=== PATIENT | female | born 1960 | race Caucasian/White ===

== ENCOUNTER → 2023-07-08 13:09 | Outpatient (BNVA) | payer MEDICARE, MEDICAID, SELFPAY | PROVIDERS: Family Provider Family Medicine; PCP Family Medicine; Visit Provider Family Medicine | DX: E11.9 Type 2 diabetes mellitus without complications (principal); I10 Essential (primary) hypertension; E78.5 Hyperlipidemia, unspecified; E05.90 Thyrotoxicosis, unspecified without thyrotoxic crisis or storm | CPT/HCPCS: 80053; 80061; 82607; 83036; 84439; 84443; 84481; 85025 ==

== ENCOUNTER → 2023-10-27 12:06 | Outpatient (BNVA) | payer MEDICARE, MEDICAID, SELFPAY | PROVIDERS: Family Provider Family Medicine; PCP Family Medicine; Visit Provider Family Medicine | DX: R39.9 Unspecified symptoms and signs involving the genitourinary system (principal); N39.0 Urinary tract infection, site not specified | CPT/HCPCS: 81000 ==

== ENCOUNTER → 2023-12-23 08:03 | Outpatient (BNVA) | payer MEDICARE, MEDICAID, SELFPAY | PROVIDERS: Family Provider Family Medicine; PCP Family Medicine; Referring Provider Family Medicine; Visit Provider Internal Medicine | DX: E11.9 Type 2 diabetes mellitus without complications (principal); E78.49 Other hyperlipidemia; I25.10 Atherosclerotic heart disease of native coronary artery without angina pectoris; K31.84 Gastroparesis; E03.9 Hypothyroidism, unspecified; Z79.84 Long term (current) use of oral hypoglycemic drugs | CPT/HCPCS: 36415; 80053; 80061; 82044; 83036; 99204 ==

== ENCOUNTER 2024-01-13 11:38 | Outpatient (CLI) | payer MEDICARE, MEDICAID, SELFPAY ==
[2024-01-13 12:26] LABS: Alanine Aminotransferase 25 U/L (0-33); Albumin Level 4.3 g/dL (3.5-5.2); Alkaline Phosphatase 57 U/L (35-105); Blood Urea Nitrogen 8 mg/dL (8-23); Calcium 9.3 mg/dL (8.5-10.5); Carbon Dioxide 24 mmol/L (22-29); Chloride 103 mmol/L (98-107); Chol HDL Ratio 1.79 mg/dL (0.0-4.40); Cholesterol 104 mg/dL (0-200); Globulin 2.5 g/dL (1.3-4.6); Glomerular Filtration Rate 84.5 mL/min (90-130); Glucose 188 mg/dL (65-115); HDL Cholesterol 58 mg/dL (60-100); LDL Cholesterol Calculated 13 mg/dL (50-129); LDL HDL Ratio 0.22 RATIO (0.00-3.22); Osmolality Calculated 291 mOsm/kg (285-295); Sodium 139 mmol/L (136-145); Total Bilirubin 0.4 mg/dL (0.15-1.2); Total Protein 6.8 g/dL (6.6-8.7); Triglycerides 163 mg/dL (0-150)
[2024-01-13 12:28] LABS: Anion Gap 16.9 (5-19); Aspartate Amino Transferase 21 U/L (0-32); Potassium 4.9 mmol/L (3.5-5.1)
== END 2024-01-13 11:39 | disposition home or self-care (01) ==
LOC: LAB 11:41
PROVIDERS: Family Provider Family Medicine; PCP Family Medicine; Visit Provider Internal Medicine Interventional Cardiology
DX: I25.10 Atherosclerotic heart disease of native coronary artery without angina pectoris (principal); I10 Essential (primary) hypertension
CPT/HCPCS: 36415; 80053; 80061

== ENCOUNTER 2024-03-18 13:25 | Outpatient (CLI) | payer MEDICARE, MEDICAID, SELFPAY ==
--- NOTE | 2024-03-18 13:30 | MM_ITS ---
WS: [id number] BILATERAL 3D TOMOSYNTHESIS DIGITAL SCREENING MAMMOGRAPHY WITH CAD CLINICAL INFORMATION: breast cancer screening HISTORY: Screening mammogram. No current complaints. COMPARISON: 08/22/2022 TECHNIQUE: Bilateral CC and MLO views. FINDINGS: Scattered fibroglandular densities bilaterally. No suspicious focal mass, asymmetry, calcifications, or architectural distortion. No evidence of malignancy. Incidental punctate and lucent centered calci fications. MM/[place] [id number] IMPRESSION: BI-RADS: 2-Benign FOLLOW UP: 1 Year Follow-up Recommend return to annual screening mammography.
== END 2024-03-18 13:26 | disposition home or self-care (01) ==
LOC: RAD 13:26
PROVIDERS: Family Provider Family Medicine; PCP Family Medicine; Visit Provider Family Medicine
DX: Z12.31 Encounter for screening mammogram for malignant neoplasm of breast (principal)
CPT/HCPCS: 77063; 77067

== ENCOUNTER 2024-03-22 10:46 | Outpatient (CLI) | payer MEDICARE, MEDICAID, SELFPAY ==
--- NOTE | 2024-03-22 10:50 | XRR_ITS ---
PROCEDURE INFORMATION: Exam: XR Right Hand Exam date and time: 03/22/2024 11:15 AM Age: 63 years old Clinical indication: Pain; Hand; Right; Additional info: Hand pain TECHNIQUE: Imaging protocol: Radiologic exam of the right hand. Views: 3 or more views. COMPARISON: No relevant prior studies available. FINDINGS: Bones/joints: No fracture or dislocation is noted. There is minimal joint space narrowing involving the 1st carpometacarpal joint and DIP joints. No erosions are noted. Bony mineralization is normal. Soft tissues: Normal. XR/XR hand RT min 3V* [id number] IMPRESSION: Minimal osteoarthritis.
[2024-03-22 11:49] LABS: Alanine Aminotransferase 50 U/L (0-33); Albumin Level 4.3 g/dL (3.5-5.2); Alkaline Phosphatase 58 U/L (35-105); Anion Gap 16.5 (5-19); Aspartate Amino Transferase 30 U/L (0-32); Blood Urea Nitrogen 12 mg/dL (8-23); Calcium 9.6 mg/dL (8.5-10.5); Carbon Dioxide 22 mmol/L (22-29); Chloride 100 mmol/L (98-107); Chol HDL Ratio 3.14 mg/dL (0.0-4.40); Cholesterol 135 mg/dL (0-200); Globulin 2.4 g/dL (1.3-4.6); Glomerular Filtration Rate 72.4 mL/min (90-130); Glucose 235 mg/dL (65-115); HDL Cholesterol 43 mg/dL (60-100); LDL Cholesterol Calculated 51 mg/dL (50-129); LDL HDL Ratio 1.19 RATIO (0.00-3.22); Osmolality Calculated 285 mOsm/kg (285-295); Potassium 4.5 mmol/L (3.5-5.1); Sodium 134 mmol/L (136-145); Total Bilirubin 0.3 mg/dL (0.15-1.2); Total Protein 6.7 g/dL (6.6-8.7); Triglycerides 206 mg/dL (0-150)
[2024-03-22 11:54] LABS: Creatinine Urine, Random 79 mg/dL (28-217); Microalbum Creatinine Ratio Ur 38 mg/dL (0-20); Microalbumin Random Urine 3 ug/dL (0-20)
[2024-03-22 11:57] LABS: Estmated Average Glucose 214; Hemoglobin A1C 9.1 % (4.0-6.0)
== END 2024-03-22 10:47 | disposition home or self-care (01) ==
LOC: LAB 10:48
PROVIDERS: Family Provider Family Medicine; PCP Family Medicine; Visit Provider Internal Medicine
DX: M79.644 Pain in right finger(s) (principal); E11.9 Type 2 diabetes mellitus without complications; E78.49 Other hyperlipidemia; I25.10 Atherosclerotic heart disease of native coronary artery without angina pectoris
CPT/HCPCS: 36415; 73130; 80053; 80061; 82044; 83036

== ENCOUNTER → 2024-03-25 08:06 | Outpatient (BNVA) | payer MEDICARE, MEDICAID, SELFPAY | PROVIDERS: Family Provider Family Medicine; PCP Family Medicine; Visit Provider Internal Medicine | DX: E11.9 Type 2 diabetes mellitus without complications (principal); E78.49 Other hyperlipidemia; Z79.84 Long term (current) use of oral hypoglycemic drugs; Z79.4 Long term (current) use of insulin | CPT/HCPCS: 99214 ==

== ENCOUNTER → 2024-04-28 13:38 | Outpatient (BNVA) | payer MEDICARE, MEDICAID, SELFPAY | PROVIDERS: Family Provider Family Medicine; PCP Family Medicine; Visit Provider Student in an Organized Health Care Education/Training Program | DX: M79.644 Pain in right finger(s) (principal); M65.311 Trigger thumb, right thumb | CPT/HCPCS: 99204 ==

== ENCOUNTER 2024-05-04 13:48 | Outpatient (CLI) | payer MEDICARE, MEDICAID, SELFPAY ==
--- NOTE | 2024-05-04 13:55 | XR_ITS ---
WS: [id number] XR lumbar spine 2-3V* [id number] REASON FOR EXAM: acute on chronic low back pain, rt si joint pain FINDINGS: Mild levoscoliosis. Mild exaggeration of the normal lordosis. No focal vertebral body abnormality. Mild narrowing of the L1-L2, L2-L3, and the L3-L4 disc space. Associated mild vertebral body osteophy tosis. No significant listhesis. XR/XR lumbar spine 2-3V* [id number] IMPRESSION: Mild multilevel degenerative spondylosis which has developed since previous exa mination of 01/28/2017.
== END 2024-05-04 13:49 | disposition home or self-care (01) ==
LOC: RAD 13:49
PROVIDERS: Family Provider Family Medicine; PCP Family Medicine; Visit Provider Family Medicine
DX: M53.3 Sacrococcygeal disorders, not elsewhere classified (principal); G89.29 Other chronic pain; M41.86 Other forms of scoliosis, lumbar region; M48.061 Spinal stenosis, lumbar region without neurogenic claudication
CPT/HCPCS: 72100

== ENCOUNTER 2024-05-17 10:59 | Outpatient (RCR) | payer MEDICARE, MEDICAID, SELFPAY | END 2024-05-27 23:59 | disposition home or self-care (01) | LOC: SPT 10:59 | PROVIDERS: Family Provider Family Medicine; PCP Family Medicine; Visit Provider Family Medicine | DX: M54.50 Low back pain, unspecified (principal) | CPT/HCPCS: 97161 ==

== ENCOUNTER 2024-06-16 13:42 | Outpatient (CLI) | payer MEDICARE, MEDICAID, SELFPAY ==
[2024-06-16 14:21] LABS: Creatinine Urine, Random 105 mg/dL (28-217); Microalbum Creatinine Ratio Ur 38 mg/dL (0-20); Microalbumin Random Urine 4 ug/dL (0-20)
[2024-06-16 14:23] LABS: Alanine Aminotransferase 43 U/L (0-33); Albumin Level 4.3 g/dL (3.5-5.2); Alkaline Phosphatase 66 U/L (35-105); Anion Gap 16.3 (5-19); Aspartate Amino Transferase 22 U/L (0-32); Blood Urea Nitrogen 9 mg/dL (8-23); Calcium 9.8 mg/dL (8.5-10.5); Carbon Dioxide 27 mmol/L (22-29); Chloride 101 mmol/L (98-107); Chol HDL Ratio 2.43 mg/dL (0.0-4.40); Cholesterol 168 mg/dL (0-200); Globulin 2.8 g/dL (1.3-4.6); Glomerular Filtration Rate 63.2 mL/min (90-130); Glucose 161 mg/dL (65-115); HDL Cholesterol 69 mg/dL (60-100); LDL Cholesterol Calculated 79 mg/dL (50-129); LDL HDL Ratio 1.14 RATIO (0.00-3.22); Osmolality Calculated 290 mOsm/kg (285-295); Potassium 5.3 mmol/L (3.5-5.1); Sodium 139 mmol/L (136-145); Total Bilirubin 0.3 mg/dL (0.15-1.2); Total Protein 7.1 g/dL (6.6-8.7); Triglycerides 100 mg/dL (0-150)
[2024-06-16 14:53] LABS: Estmated Average Glucose 194; Hemoglobin A1C 8.4 % (4.0-6.0)
== END 2024-06-16 13:43 | disposition home or self-care (01) ==
LOC: LAB 13:44
PROVIDERS: PCP Family Medicine; Visit Provider Internal Medicine
DX: E11.9 Type 2 diabetes mellitus without complications (principal)
CPT/HCPCS: 36415; 80053; 80061; 82044; 83036

== ENCOUNTER → 2024-06-29 11:11 | Outpatient (BNVA) | payer MEDICARE, MEDICAID, SELFPAY | PROVIDERS: PCP Family Medicine; Visit Provider Internal Medicine | DX: E11.9 Type 2 diabetes mellitus without complications (principal); E78.49 Other hyperlipidemia; I25.10 Atherosclerotic heart disease of native coronary artery without angina pectoris; Z79.4 Long term (current) use of insulin; Z79.84 Long term (current) use of oral hypoglycemic drugs | CPT/HCPCS: 99214 ==

== ENCOUNTER 2024-08-01 05:45 | Day surgery (SDC) | payer MEDICARE, MEDICAID, SELFPAY ==
[2024-08-01] VITALS (7 sets, daily range): BP systolic 123–158; BP diastolic 73–86; PULSE 58–70; RESP 17–20; TEMP 36.4–36.8; O2SAT 95–98; BMI 29.7
[2024-08-01] MEDS: acetaminophen 1,000 MG/100 ML PIGGYBACK 400 MG IV (06:20)
[2024-08-01] MEDS: scopolamine 1.5 Patch 1 PATCH TRANSDERMA (06:20)
[2024-08-01] MEDS: sodium chloride 0.9% 1,000 ML 30 ML IV (06:21)
[2024-08-01] MEDS: ketorolac 30 mg/mL INJ IVP (06:21)
[2024-08-01 06:22] LABS: Glucose Point of Care 208 mg/dL (70-110)
--- NOTE | 2024-08-01 06:39 | W.PM.OPSFHP ---
Same Day Surgery H&P Indication for Procedure/HPI DATE OF PROCEDURE: August 01, 2024 CHIEF COMPLAINT/INDICATIONFOR SURGICAL PROCEDURE: Right thumb trigger PREOP DIAGNOSIS: Right thumb trigger PLANNED PROCEDURE: Operation Date: 08/01/24 07:00 Proposed Procedures p right thumb trigger release(Right) - Braden Ball DO Medications/Allergies* Home Medications Medication Instructions Recorded Confirmed Type evolocumab 140 mg/mL subcutaneous 140 mg SUBCUT DIRECTED 06/14/23 07/28/24 History pen injector (Aylni Jeffrey) aspirin 81 mg tablet,delayed 81 mg PO DAILY 08/17/23 07/28/24 History release biotin 5,000 mcg chewable tablet 5,000 mcg PO DAILY 08/17/23 07/28/24 History calcium 600 mg (as 2 cap PO DAILY 08/17/23 07/28/24 History carbonate)-vitamin D3 12.5 mcg (500 unit) capsule carvedilol 6.25 mg tablet 3.25 mg PO BID 08/17/23 07/28/24 History cetirizine 10 mg tablet 10 mg PO DAILY PRN allegy 08/17/23 07/28/24 History clopidogrel 75 mg tablet 75 mg PO DAILY 08/17/23 07/28/24 History ferrous sulfate 325 mg (65 mg 325 mg PO DAILY 08/17/23 07/28/24 History iron) tablet (iron) losartan 100 mg tablet 100 mg PO DAILY 08/17/23 07/28/24 History lysine 1,000 mg tablet 1,000 mg PO DAILY 08/17/23 07/28/24 History magnesium oxide 400 mg PO DAILY 08/17/23 07/28/24 History mecobalamin (vitamin B12) 1,000 1,000 mcg PO DAILY 08/17/23 07/28/24 History mcg chewable tablet omega-3 fatty acids 1,000 mg 1,000 mg PO DAILY 08/17/23 07/28/24 History capsule rivaroxaban 2.5 mg tablet (Xarelto) 2.5 mg PO BID 08/17/23 07/28/24 History rosuvastatin 20 mg tablet 40 mg PO DAILY 08/17/23 07/28/24 History pantoprazole 40 mg tablet,delayed 40 mg PO DAILY 06/15/24 07/28/24 History release tizanidine 4 mg tablet 4 mg PO TID 06/15/24 07/28/24 History gabapentin 300 mg capsule 300 mg PO BID 07/28/24 07/28/24 History insulin glargine 100 unit/mL (3 30 unit SUBCUT DAILY 07/28/24 07/28/24 History mL) subcutaneous pen (Lantus Solostar U-100 Insulin) Allergies/Adverse Reactions Allergy/AdvReac Type Severity Reaction Status Date / Time latex Allergy ALGY-Anaphy Verified 07/11/24 10:50 laxis metronidazole [From Flagyl] Allergy ALGY-Hives Verified 07/11/24 10:50 milnacipran [From Savella] Allergy sweating Verified 07/11/24 10:50 nystatin Allergy ADR-Anxiety Verified 07/11/24 10:50 Sulfa (Sulfonamide Allergy ALGY-Rash Verified 07/11/24 10:50 Antibiotics) Current Medications: Generic Name Dose Route Start Last Admin Trade Name Freq PRN Reason Stop Dose Admin Sodium Chloride 1,000 mls @ 30 mls/hr 08/01/24 06:00 08/01/24 06:21 Sodium Chloride 0.9% IV 08/02/24 05:59 30 mls/hr .Q24H IGNACIO Administration Pertinent History/Comorbid Conditions* Medical History (Updated 05/30/24 @ 21:16 by Braden Ball DO) Chronic back pain Gastroparesis Takotsubo cardiomyopathy Oral lichen planus Fibromyalgia GERD (gastroesophageal reflux disease) Hiatal hernia CAD (coronary artery disease) Hyperthyroidism Hyperlipidemia Hypertension Diabetes mellitus Surgical History (Updated 08/17/23 @ 10:07 by Angelina Cook MD) History of elbow surgery left, tendon release History of anterior colporrhaphy History of knee surgery lefthis History of coronary artery bypass graft History of shoulder surgery right History of cholecystectomy History of hysterectomy with bilateral oophorectomy History of appendectomy History of tonsillectomy and adenoidectomy Family History (Updated 07/08/23 @ 12:42 by Angelina Cook MD) Dementia Mother Cancer Mother lung (nonsmoker but significant exposure) Father nonmelanoma skin Sister lung (smoker) Social History Smoking and tobacco/nicotine status: never used tobacco/nicotine Alcohol intake: never Substance/Drug Use: current Substance/Drug use frequency: daily Household members: spouse Marital status: Number of children: 3 Number of grandchildren: 6 Current occupational status: disabled Special mikala needs: No Agree to transfusion: Yes Pertinent Exam Findings alert, oriented x 3, operative site marked and procedure specific exam findings Patient has significant A1 lauri tenderness with mechanical catching noted. Please refer to detailed orthopedic examination on 04/28/2024 listed below: Examination of the right hand: Significant tenderness to palpation over the A1 lauri right thumb, with palpable mechanical triggering noted and mild decreased thumb range of motion Able to make full fist with the rest of the digits Negative over the carpal tunnel Negative CMC grind, no CMC tenderness palpation at the basal joint of the thumb Negative first dorsal compartment tenderness palpation negative Lenea's Recommendations Surgery/Procedure today Other Plans: Plan to proceed to the OR today for a right thumb trigger release. Patient understands the ins and outs procedure risk benefits complication alternatives surgery and through shared decision make elects proceed with surgical intervention. All questions been answered at this time. Coding Level of Care Code Acute Code for Juan Fwd
--- NOTE | 2024-08-01 06:49 | P.ANESASSM_ITS ---
Pre-Anesthetic Assessment Height/Weight: Height 1.65 m Weight 81.193 kg Temp Pulse Resp BP Pulse Ox O2 Del Method 98.2 F 70 18 123/83 96 Room Air 08/01/24 06:10 08/01/24 06:10 08/01/24 06:10 08/01/24 06:20 08/01/24 06:10 08/01/24 06:40 Preop Diagnosis: Right thumb trigger Operation Date: 08/01/24 07:00 Proposed Procedures p right thumb trigger release(Right) - Braden aBll, Familial anesthetic complications: none Was Beta Paula taken within 24 hours: N/A Was Clonidine taken within 24 hours: N/A Last intake: Intake Last Liquid Date 07/31/24 Last Liquid Time 17:00 Last Solid Date 07/31/24 Last Solid Time 17:00 Social No alcohol and No tobacco Exam alert, oriented x 3, clear to auscultation bilaterally and regular rate & rhythm Airway Mallampati: Class II Dentition: partials CV/HEM Arrythmia, Coronary Artery Disease (cabg) and Hypertension hx takotsubo's - states no CP, SOB, able to achieve > 4 METS now GI Hiatal Hernia Metabolic Diabetes Mellitus, Hyperlipidemia and Thyroid Disease Anesthetic Plan ASA status: 3 Anesthesia: MAC Risk of > 500 ml blood loss (7ml/kg in children): No Medications/Allergies Home Medications Medication Instructions Recorded Confirmed Last Taken Type evolocumab 140 mg/mL subcutaneous 140 mg SUBCUT DIRECTED 06/14/23 07/28/24 07/20/24 History pen injector (Aylin Jeffrey) aspirin 81 mg tablet,delayed 81 mg PO DAILY 08/17/23 07/28/24 07/28/24 History release biotin 5,000 mcg chewable tablet 5,000 mcg PO DAILY 08/17/23 07/28/24 07/21/24 History calcium 600 mg (as 2 cap PO DAILY 08/17/23 07/28/24 07/27/24 History carbonate)-vitamin D3 12.5 mcg (500 unit) capsule carvedilol 6.25 mg tablet 3.25 mg PO BID 08/17/23 07/28/24 07/28/24 History cetirizine 10 mg tablet 10 mg PO DAILY PRN allegy 08/17/23 07/28/24 07/28/24 History clopidogrel 75 mg tablet 75 mg PO DAILY 08/17/23 07/28/24 Unknown History ferrous sulfate 325 mg (65 mg 325 mg PO DAILY 08/17/23 07/28/24 07/26/24 History iron) tablet (iron) losartan 100 mg tablet 100 mg PO DAILY 08/17/23 07/28/24 07/28/24 History lysine 1,000 mg tablet 1,000 mg PO DAILY 08/17/23 07/28/24 07/26/24 History magnesium oxide 400 mg PO DAILY 08/17/23 07/28/24 07/28/24 History mecobalamin (vitamin B12) 1,000 1,000 mcg PO DAILY 08/17/23 07/28/24 07/28/24 History mcg chewable tablet omega-3 fatty acids 1,000 mg 1,000 mg PO DAILY 08/17/23 07/28/24 07/28/24 History capsule rivaroxaban 2.5 mg tablet (Xarelto) 2.5 mg PO BID 08/17/23 07/28/24 07/27/24 History rosuvastatin 20 mg tablet 40 mg PO DAILY 08/17/23 07/28/24 07/28/24 History 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 meter #1 ea 10/20/23 06/29/24 Unknown Rx blood sugar diagnostic (OneTouch #100 ea 10/22/23 06/29/24 Unknown Rx Verio test strips) lancets 30 gauge (OneTouch #100 ea 11/23/23 06/29/24 Unknown Rx UltraSoft 2 Lancet) diclofenac sodium 1 % topical gel 4 g topical QID #100 grams 01/27/24 07/28/24 06/13/24 Rx (Voltaren Arthritis Pain) 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 meter,continuous #1 ea 03/25/24 06/29/24 Unknown Rx (Dexcom G7 Stripper [employer]) fluticasone propionate 50 1 spray intranasal DAILY PRN 04/13/24 07/28/24 Unknown Rx mcg/actuation nasal allergy symptoms #16 grams spray,suspension 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 sensor (Dexcom G7 #9 ea 04/15/24 06/29/24 Unknown Rx Sensor device) pen needle, diabetic 32 gauge x #100 ea 05/04/24 06/29/24 Unknown Rx (Comfort EZ Pen [place]) albuterol sulfate 90 mcg/actuation 2 puff inhalation Q6H PRN 05/11/24 07/28/24 Unknown Rx aerosol inhaler shortness of breath or wheezing #8.5 grams duloxetine 60 mg capsule,delayed 60 mg PO DAILY #90 caps 06/14/24 07/28/24 07/28/24 Rx release pantoprazole 40 mg tablet,delayed 40 mg PO DAILY 06/15/24 07/28/24 07/28/24 History release tizanidine 4 mg tablet 4 mg PO TID 06/15/24 07/28/24 07/28/24 History dulaglutide 1.5 mg/0.5 mL 1.5 mg (0.5 mL) SUBCUT Q7D 1 month 06/29/24 07/28/24 07/21/24 Rx subcutaneous pen injector #2 mL (Trulicity) dulaglutide 3 mg/0.5 mL 3 mg (0.5 mL) SUBCUT Q7D #2 mL 06/29/24 06/29/24 Unknown Rx subcutaneous pen injector (Trulicity) amitriptyline 50 mg tablet 50 mg PO DAILY #90 tabs 07/12/24 07/28/24 07/28/24 Rx methimazole 10 mg tablet 10 mg PO DAILY #90 tabs 07/12/24 07/28/24 07/28/24 Rx gabapentin 300 mg capsule 300 mg PO BID 07/28/24 07/28/24 07/28/24 History insulin glargine 100 unit/mL (3 30 unit SUBCUT DAILY 07/28/24 07/28/24 07/28/24 History mL) subcutaneous pen (Lantus Solostar U-100 Insulin) Allergies Allergy/AdvReac Type Severity Reaction Status Date / Time latex Allergy ALGY-Anaphy Verified 07/11/24 10:50 laxis metronidazole [From Flagyl] Allergy ALGY-Hives Verified 07/11/24 10:50 milnacipran [From Savella] Allergy sweating Verified 07/11/24 10:50 nystatin Allergy ADR-Anxiety Verified 07/11/24 10:50 Sulfa (Sulfonamide Allergy ALGY-Rash Verified 07/11/24 10:50 Antibiotics) Current Medications Generic Name Dose Route Start Last Admin Trade Name Freq PRN Reason Stop Dose Admin Sodium Chloride 1,000 mls @ 30 mls/hr 08/01/24 06:00 08/01/24 06:21 Sodium Chloride 0.9% IV 08/02/24 05:59 30 mls/hr .Q24H IGNACIO Administration PFSH Anesthesia Medical History Chronic back pain Gastroparesis Takotsubo cardiomyopathy Oral lichen planus Fibromyalgia GERD (gastroesophageal reflux disease) Hiatal hernia CAD (coronary artery disease) Hyperthyroidism Hyperlipidemia Hypertension Diabetes mellitus Surgical History History of elbow surgery left, tendon release History of anterior colporrhaphy History of knee surgery lefthis History of coronary artery bypass graft History of shoulder surgery right History of cholecystectomy History of hysterectomy with bilateral oophorectomy History of appendectomy History of tonsillectomy and adenoidectomy Family History Mother Dementia Cancer lung (nonsmoker but significant exposure) Father Cancer nonmelanoma skin Sister Cancer lung (smoker) Social History Smoking and tobacco/nicotine status: never used tobacco/nicotine Alcohol intake: never Substance/Drug Use: current Substance/Drug use frequency: daily Household members: spouse Marital status: Number of children: 3 Number of grandchildren: 6 Current occupational status: disabled Special mikala needs: No Agree to transfusion: Yes Data Anesthesia Cardiac Studies: No Data to Display
[2024-08-01] MEDS: ceFAZolin 2,000 MG in sodium chloride 0.9% (plus) 50 ML 100 MG IV (07:00)
[2024-08-01] MEDS: ROPivacaine 0.5% SDV 30 mL 15 MG INJECTION (07:10)
[2024-08-01] MEDS: lidocaine 1% 10 ML INJ 3 ML XX (07:10)
--- NOTE | 2024-08-01 07:30 | P.BOP_ITS ---
Date of Procedure: [08/01/2024] Surgeon: Braden Ball DO Biomedical Service Engineer(s): Houston Ball PA-C Procedure(s) performed: Right thumb trigger release Findings of the procedure(s): Patient found to have right thumb trigger underwent procedure as planned without issues or complications Estimated blood loss: 2 mL Specimen(s) removed: None Post-operative diagnosis: Right thumb trigger
--- NOTE | 2024-08-01 07:31 | P.OP_ITS ---
Operative Report Date of procedure: August 01, 2024 Surgeon: Braden Ball DO Wheel Alignment Technician: Houston Ball PA-C: PA was necessary for assistance in this case with hand positioning to execute the procedure, retraction and protection of neurovascular structures as well as to assist with wound closure and dressing application. Procedure: Preoperative diagnosis: Right thumb trigger Post-op diagnosis: Right?thumb?trigger Procedure done: Right?thumb?trigger release Surgeon: Braden Ball DO Estimated blood loss: 2 mL Tourniquet time: 5 minutes Anesthesia: MAC/ local IV fluids: See anesthesia record Complications: None Findings: See operative report narrative Condition: stable Disposition: same day Brief History: Patient presents to the outpatient setting with findings consistent with a right?thumb?trigger. Patient has been worked up in the outpatient setting and is failed conservative treatment approach.? Patient has a right?thumb?trigger that she has tried treating conservatively with recurrence of her?triggering pain.? We talked about treatment options and ultimately patient would like to proceed with a right?thumb?trigger release. At this point time through shared decision making she like to pursue surgical intervention. We talked about the risk benefits complications and alternatives with surgical nonsurgical treatment options.? Understanding risk of surgery patient agrees to proceed with a right?thumb?trigger release. All questions answered. Procedure: Patient was seen evaluated in the preoperative holding area.? Consent was reviewed and signed with patient.? Correct extremity was then marked.? Patient was then seen and evaluated by the anesthesia department once cleared for surgery patient was then taken back to the operative suite patient was placed in supine position and all bony prominences well-padded the patient was properly secured to the bed.? Armboard was applied to the right upper extremity and the right upper extremity was then placed with a nonsterile tourniquet to the right upper arm.? This point time the right upper extremity was then prepped and draped in standard orthopedic fashion.? A final timeout was performed.? Patient received appropriate preoperative antibiotics. Esmarch tourniquet was used exsanguinate the right upper extremity and tourniquet was insufflated to 250 mmHg.? I identified patient's MP flexion crease marked appropriate incision transversely across the flexion crease within Liya's lines sharp scalpel incision was made only through skin.? Once this was done I switched to Littler dissection scissors this I then subsequently spread longitudinally in the planes of the digital nerves.? Once these were identified these were protected by my retail assistant with Kasdan retractors.? Next I identified directly over the A1 lauri of the right?thumb.? This was significantly thickened and identified to be the area of patient's?thumb?triggering.? I used sharp scalpel to incise the A1 lauri and then utilized my retail assistant to retract the ability and under loupe magnification released the entirety of the A1 lauri both proximally and distally up to the oblique lauri.? This point time the tendon was then inspected and found to be healthy there was some inflammation around the tendon itself but no evidence of tearing and no need for any debridement.? The Ragnell was used to pull the tendon out of the incision and there was no mechanical?triggering I then took the patient's?thumb?through range of motion no recurrent?triggering was noted.? ?I then let the tourniquet down identified and maintained exact hemostasis with bipolar electrocautery irrigated the wound bed and then closed the incision with interrupted nylon suture. We did patient gently wake up from anesthesia and was able to make a fist and extend her thumb with no mechanical triggering noted. Incision sites were then dressed with Xeroform 4 x 4's Kerlix Sebas wrap and an Ryan wrap.? Patient was then awakened from anesthesia and taken to PACU in stable condition. Disposition: Patient taken to PACU in stable condition recovering well.? Dressing on in place clean dry and intact.? Patient was receive appropriate discharge instruction as well as pain medication postoperatively.? Patient may be allowed weightbearing as tolerated to the right hand and encourage range of motion once dressing come down after 72 hours.? Patient to follow-up with me in the office in 2 weeks.? Patient understands and agrees with current plan.? All questions answered.
--- NOTE | 2024-08-01 07:49 | PM.PACU ---
PACU note Narrative: Patient is a 63-year-old female that just underwent a right trigger thumb release. Patient transferred to PACU in stable condition. Pain is well controlled. Dressing on hand is dry and in place. Patient's fingers are warm and well-perfused. Patient can wiggle fingers. normal cap refill under 2 seconds. Patient has normal elbow range of motion. Unable to assess sensation due to residual localized anesthetic. Exam: awake Disposition: discharged
--- NOTE | 2024-08-01 08:35 | ANE.PACU2 ---
Inpatient post-anesthesia follow up: Airway intact: Yes Vital signs: Temperature 97.8 F Pulse Rate 66 Respiratory Rate 17 Blood Pressure 135/80 Pulse Oximetry 95 Oxygen Delivery Me thod Room Air Oxygen Flow Rate Fraction of Inspir ed Oxygen Hydration adequate: Yes Nausea and vomiting: No Pain level: 1 Mental status: Baseline
== END 2024-08-01 08:35 | disposition home or self-care (01) ==
PROVIDERS: PCP Family Medicine; Visit Provider Student in an Organized Health Care Education/Training Program
PROC: (CPT 26055; principal; 2024-08-01 07:00)
DX: M65.311 Trigger thumb, right thumb (principal); I25.10 Atherosclerotic heart disease of native coronary artery without angina pectoris; Z95.1 Presence of aortocoronary bypass graft; I10 Essential (primary) hypertension; E11.9 Type 2 diabetes mellitus without complications; E78.5 Hyperlipidemia, unspecified; Z79.82 Long term (current) use of aspirin; Z79.4 Long term (current) use of insulin; M79.7 Fibromyalgia; E03.9 Hypothyroidism, unspecified
CPT/HCPCS: 26055; 36416; 82962; J0131; J0690; J1885; J2250; J2704; J2795; J3010; J7030

== ENCOUNTER → 2024-08-12 09:29 | Outpatient (BNVA) | payer MEDICARE, MEDICAID, SELFPAY | PROVIDERS: PCP Family Medicine; Visit Provider Family Medicine | DX: E05.90 Thyrotoxicosis, unspecified without thyrotoxic crisis or storm (principal) | CPT/HCPCS: 84439; 84443; 84481 ==

== ENCOUNTER → 2024-08-16 08:18 | Outpatient (BNVA) | payer MEDICARE, MEDICAID, SELFPAY | PROVIDERS: PCP Family Medicine; Visit Provider Physician Assistant | DX: Z98.890 Other specified postprocedural states (principal) | CPT/HCPCS: 99024 ==

== ENCOUNTER → 2024-08-26 12:43 | Outpatient (BNVA) | payer MEDICARE, MEDICAID, SELFPAY | PROVIDERS: PCP Family Medicine; Visit Provider Family Medicine | DX: R30.0 Dysuria (principal); E11.9 Type 2 diabetes mellitus without complications; E78.49 Other hyperlipidemia; Z79.899 Other long term (current) drug therapy | CPT/HCPCS: 81000; 82043; 87077; 87086; 87184 ==

== ENCOUNTER 2024-09-30 13:09 | Outpatient (CLI) | payer MEDICARE, MEDICAID, SELFPAY ==
[2024-09-30 13:45] LABS: Estmated Average Glucose 186; Hemoglobin A1C 8.1 % (4.0-6.0)
[2024-09-30 13:46] LABS: Alanine Aminotransferase 58 U/L (0-33); Alkaline Phosphatase 59 U/L (35-105); Anion Gap 16.3 (5-19); Aspartate Amino Transferase 45 U/L (0-32); Blood Urea Nitrogen 7 mg/dL (8-23); Calcium 8.9 mg/dL (8.5-10.5); Carbon Dioxide 23 mmol/L (22-29); Chloride 102 mmol/L (98-107); Chol HDL Ratio 2.38 mg/dL (0.0-4.40); Cholesterol 112 mg/dL (0-200); Globulin 2.6 g/dL (1.3-4.6); Glucose 187 mg/dL (65-115); HDL Cholesterol 47 mg/dL (60-100); LDL Cholesterol Calculated 33 mg/dL (50-129); Osmolality Calculated 287 mOsm/kg (285-295); Potassium 4.3 mmol/L (3.5-5.1); Sodium 137 mmol/L (136-145); Total Bilirubin 0.4 mg/dL (0.15-1.2); Total Protein 6.6 g/dL (6.6-8.7); Triglycerides 160 mg/dL (0-150)
== END 2024-09-30 13:10 | disposition home or self-care (01) ==
LOC: LAB 13:11
PROVIDERS: PCP Family Medicine; Visit Provider Internal Medicine
DX: E11.9 Type 2 diabetes mellitus without complications (principal); E78.49 Other hyperlipidemia; I25.10 Atherosclerotic heart disease of native coronary artery without angina pectoris
CPT/HCPCS: 36415; 80053; 80061; 83036

== ENCOUNTER → 2024-10-03 10:56 | Outpatient (BNVA) | payer MEDICARE, MEDICAID, SELFPAY | PROVIDERS: PCP Family Medicine; Visit Provider Internal Medicine | DX: E11.9 Type 2 diabetes mellitus without complications (principal); E78.49 Other hyperlipidemia; E05.90 Thyrotoxicosis, unspecified without thyrotoxic crisis or storm; I25.10 Atherosclerotic heart disease of native coronary artery without angina pectoris; M79.7 Fibromyalgia; Z79.4 Long term (current) use of insulin; Z79.890 Hormone replacement therapy; E03.9 Hypothyroidism, unspecified | CPT/HCPCS: 99214 ==

== ENCOUNTER 2024-12-27 10:38 | Outpatient (CLI) | payer MEDICARE, MEDICAID, SELFPAY ==
[2024-12-27 12:35] LABS: Basophils % 0.8 %; Eosinophils # 0.2 10^3/uL (0.0-0.8); Eosinophils % 4.2 %; Hematocrit 40.6 % (36-47); Lymphocytes % 40.5 %; Mean Corpuscular HGB Conc 32.8 g/dL (30-55); Mean Corpuscular Hemoglobin 31.8 pg (27-33); Mean Corpuscular Volume 97.1 fl (85-98); Mean Platelet Volume 11.7 fL (7.4-10.4); Monocytes # 0.5 10^3/uL (0.2-0.9); Monocytes % 10.4 %; Neutrophils # 2.19 10^3/uL (1.8-7.7); Neutrophils % 43.7 %; Nucleated Red Blood Cells % 0 %; Platelet Count 142 10^3/cmm (157-399); Red Blood Count 4.18 10^6/uL (3.85-5.65); Red Cell Distribution Width 13.4 % (12.1-15.1); White Blood Count 5.01 10^3/uL (3.29-11.43)
[2024-12-27 12:53] LABS: Estmated Average Glucose 177; Hemoglobin A1C 7.8 % (4.0-6.0)
[2024-12-27 13:00] LABS: Creatinine Urine, Random 91 mg/dL (28-217); Microalbum Creatinine Ratio Ur 11 mg/dL (0-20); Microalbumin Random Urine 1 ug/dL (0-20)
[2024-12-27 13:11] LABS: NT Pro B Type Natriuretic Pept 503 pg/mL (0-125)
[2024-12-27 13:13] LABS: Alanine Aminotransferase 59 U/L (0-33); Alkaline Phosphatase 61 U/L (35-105); Anion Gap 15.3 (5-19); Aspartate Amino Transferase 39 U/L (0-32); Blood Urea Nitrogen 12 mg/dL (8-23); Calcium 9.3 mg/dL (8.5-10.5); Carbon Dioxide 23 mmol/L (22-29); Chloride 102 mmol/L (98-107); Chol HDL Ratio 3.39 mg/dL (0.0-4.40); Cholesterol 149 mg/dL (0-200); Free T4 Free Thyroxine 0.87 ng/dL (0.82-1.77); Globulin 2.6 g/dL (1.3-4.6); Glucose 202 mg/dL (65-115); HDL Cholesterol 44 mg/dL (60-100); LDL Cholesterol Calculated 49 mg/dL (50-129); LDL HDL Ratio 1.11 RATIO (0.00-3.22); Osmolality Calculated 288 mOsm/kg (285-295); Potassium 4.3 mmol/L (3.5-5.1); Sodium 136 mmol/L (136-145); Thyroid Stimulating Hormone 4.81 uIU/mL (0.27-4.20); Total Bilirubin 0.4 mg/dL (0.15-1.2); Total Protein 6.6 g/dL (6.6-8.7); Triglycerides 282 mg/dL (0-150)
[2024-12-28 07:34] LABS: T3 Total 71 ng/dL (76-181)
== END 2024-12-27 10:39 | disposition home or self-care (01) ==
LOC: LAB 10:42
PROVIDERS: Absent Provider Internal Medicine Interventional Cardiology; PCP Family Medicine; Visit Provider Internal Medicine
DX: I25.118 Atherosclerotic heart disease of native coronary artery with other forms of angina pectoris (principal); E11.9 Type 2 diabetes mellitus without complications; E78.49 Other hyperlipidemia; E05.90 Thyrotoxicosis, unspecified without thyrotoxic crisis or storm; M79.7 Fibromyalgia; I25.10 Atherosclerotic heart disease of native coronary artery without angina pectoris; I51.81 Takotsubo syndrome; I71.20 Thoracic aortic aneurysm, without rupture, unspecified; I21.4 Non-ST elevation (NSTEMI) myocardial infarction; R42 Dizziness and giddiness; I10 Essential (primary) hypertension; I49.3 Ventricular premature depolarization
CPT/HCPCS: 36415; 80053; 80061; 82044; 83036; 83880; 84439; 84443; 84480; 85025

== ENCOUNTER → 2025-01-04 11:29 | Outpatient (BNVA) | payer MEDICARE, MEDICAID, SELFPAY | PROVIDERS: PCP Family Medicine; Visit Provider Internal Medicine | DX: E11.9 Type 2 diabetes mellitus without complications (principal); E78.49 Other hyperlipidemia; I25.10 Atherosclerotic heart disease of native coronary artery without angina pectoris; M79.7 Fibromyalgia | CPT/HCPCS: 99214 ==

== ENCOUNTER → 2025-02-23 12:55 | Outpatient (BNVA) | payer MEDICARE, MEDICAID, SELFPAY | PROVIDERS: PCP Family Medicine; Visit Provider Surgery | DX: Z12.11 Encounter for screening for malignant neoplasm of colon (principal) | CPT/HCPCS: 99024; 99203 ==

== ENCOUNTER 2025-03-15 06:17 | Day surgery (SDC) | payer MEDICARE, MEDICAID, SELFPAY ==
[2025-03-15 06:32] VITALS: BP 118/99; PULSE 97; RESP 16; TEMP 36.6; O2SAT 95; BMI 28.1
[2025-03-15 06:38] LABS: Glucose Point of Care 163 mg/dL (70-110)
[2025-03-15] MEDS: sodium chloride 0.9% 1,000 ML 15 ML IV (06:39)
--- NOTE | 2025-03-15 06:46 | W.PM.OPSUD ---
Surgery/Procedure H&P Update DATE OF PROCEDURE: March 15, 2025 DATE H&P PERFORMED: 02/23/25 H&P UPDATE INFORMATION: I have reviewed H&P completed within last 30 days, I have examined patient prior to procedure, No changes to prior documentation, H&P is in [facility] EMR on date indicated and Risks and benefits of the procedure reviewed PLANNED PROCEDURE: Operation Date: 03/15/25 07:55 Proposed Procedures p Colonoscopy 26007 G0105 Z12.11(Not Applicable) - Get Sinha MD
--- NOTE | 2025-03-15 07:24 | ANES.PREANE2 ---
Pre-Anesthetic Assessment Height/Weight: Height 1.65 m Weight 76.657 kg Temp Pulse Resp BP Pulse Ox O2 Del Method 97.9 F 97 16 118/99 95 Room Air 03/15/25 06:32 03/15/25 06:32 03/15/25 06:32 03/15/25 06:32 03/15/25 06:32 03/15/25 06:32 Preop Diagnosis: screening Operation Date: 03/15/25 07:55 Proposed Procedures p Colonoscopy [id number] G0105 Z12.11(Not Applicable) - Get Sinha MD Was Beta Paula taken within 24 hours: Yes Was Clonidine taken within 24 hours: N/A Last intake: Intake Last Liquid Date 03/14/25 Last Liquid Time 23:55 Last Solid Date 03/13/25 Last Solid Time 12:00 Social No alcohol and No tobacco Exam alert and oriented x 3 Airway Submandibular: within normal limits Cervical ROM: within normal limits Mallampati: Class II Dentition: partials History/ROS No significant history except as noted Pulmonary Asthma (last used a month) CV/HEM Atrial Fibrillation, Coronary Artery Disease and Hypertension [facility]- wearing monitor to identify if she is having intermittant arrhythmia None reported Hepatic None reported GI Gastroesophageal Reflux Disease Metabolic Diabetes Mellitus, Hyperlipidemia and Thyroid Disease Musc/skel Fibromyalgia oral lichen planus Neuropsych None reported Anesthetic Plan ASA status: 3 Anesthesia: MAC Risk of > 500 ml blood loss (7ml/kg in children): No Medications/Allergies Home Medications ?Medication ?Instructions ?Recorded ?Confirmed ?Last Taken ?Type evolocumab 140 mg/mL subcutaneous 140 mg SUBCUT DIRECTED 06/14/23 03/15/25 03/14/25 History pen injector (Aylin Jeffrey) aspirin 81 mg tablet,delayed 81 mg PO DAILY 08/17/23 03/15/25 03/12/25 History release biotin 5,000 mcg chewable tablet 5,000 mcg PO DAILY 08/17/23 03/15/25 03/14/25 History calcium 600 mg (as 2 cap PO DAILY 08/17/23 03/15/25 03/14/25 History carbonate)-vitamin D3 12.5 mcg (500 unit) capsule cetirizine 10 mg tablet 10 mg PO DAILY PRN allegy 08/17/23 03/15/25 03/14/25 History ferrous sulfate 325 mg (65 mg 325 mg PO DAILY 08/17/23 03/15/25 03/14/25 History iron) tablet (iron) magnesium oxide 400 mg PO DAILY 08/17/23 03/15/25 03/14/25 History mecobalamin (vitamin B12) 1,000 1,000 mcg PO DAILY 08/17/23 03/15/25 03/14/25 History mcg chewable tablet omega-3 fatty acids 1,000 mg 1,000 mg PO DAILY 08/17/23 03/15/25 03/14/25 History capsule rivaroxaban 2.5 mg tablet (Xarelto) 2.5 mg PO BID 08/17/23 03/15/25 03/12/25 History 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 meter #1 ea 10/20/23 03/15/25 Unknown Rx lancets 30 gauge (OneTouch #100 ea 11/23/23 03/15/25 Unknown Rx UltraSoft 2 Lancet) diclofenac sodium 1 % topical gel 4 g topical QID #100 grams 01/27/24 03/15/25 03/14/25 Rx (Voltaren Arthritis Pain) 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,welding machine feeder,cont #1 ea 03/25/24 03/15/25 Unknown Rx (Dexcom G7 Telephone Order Clerk Room Service) cane #1 ea 08/26/24 03/15/25 Unknown Rx blood sugar diagnostic (OneTouch #100 strips 11/23/24 03/15/25 Unknown Rx Ultra Test strips) tizanidine 4 mg tablet 4 mg PO TID #30 tabs 01/02/25 03/15/25 03/14/25 Rx acarbose 25 mg tablet 25 mg PO TID 1 month #90 tabs 01/04/25 03/15/25 03/14/25 Rx insulin degludec 100 unit/mL (3 21 unit (0.21 mL) SUBCUT DAILY 1 01/04/25 03/15/25 03/14/25 Rx mL) subcutaneous pen month #15 mL methimazole 5 mg tablet 5 mg PO DAILY 1 month #30 tabs 01/04/25 03/15/25 03/14/25 Rx fluticasone propionate 50 1 spray intranasal DAILY PRN 01/17/25 03/15/25 03/14/25 Rx mcg/actuation nasal allergy symptoms #16 grams spray,suspension 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 sensor (Dexcom G7 #9 ea 01/18/25 03/15/25 Unknown Rx Sensor device) pen needle, diabetic 32 gauge x #100 ea 02/08/25 03/15/25 Unknown Rx amitriptyline 50 mg tablet 50 mg PO DAILY #90 tabs 02/13/25 03/15/25 03/14/25 Rx ondansetron 8 mg disintegrating 8 mg PO Q8H PRN nausea and 02/23/25 03/15/25 03/12/25 Rx tablet vomiting #3 tabs tirzepatide 10 mg/0.5 mL 10 mg (0.5 mL) SUBCUT Q7D 1 month 02/27/25 03/15/25 03/03/25 Rx subcutaneous pen injector #2.5 mL (Navid) albuterol sulfate 90 mcg/actuation 2 puff inhalation Q6H PRN 03/07/25 03/15/25 03/14/25 Rx aerosol inhaler shortness of breath or wheezing #8.5 grams carvedilol 6.25 mg tablet 6.25 mg PO BID #180 tabs 03/09/25 03/15/25 03/14/25 Rx duloxetine 60 mg capsule,delayed 60 mg PO DAILY #90 caps 03/09/25 03/15/25 03/14/25 Rx release buspirone 7.5 mg tablet 7.5 mg PO 2XD 03/13/25 03/15/25 03/14/25 History losartan 100 mg tablet 100 mg PO DAILY #90 tabs 03/13/25 03/15/25 03/14/25 Rx pantoprazole 40 mg tablet,delayed 40 mg PO DAILY 03/13/25 03/15/25 03/14/25 History release rosuvastatin 20 mg tablet 40 mg (2 x 20 mg) PO DAILY #90 tabs 03/13/25 03/15/25 03/14/25 Rx Allergies Allergy/AdvReac Type Severity Reaction Status Date / Time latex Allergy ALGY-Anaphy Verified 03/13/25 08:47 laxis metronidazole (From Flagyl) Allergy ALGY-Hives Verified 03/13/25 08:47 milnacipran (From Savella) Allergy sweating Verified 06/02/25 08:47 nystatin Allergy ADR-Anxiety Verified 03/13/25 08:47 Sulfa (Sulfonamide Allergy ALGY-Rash Verified 03/13/25 08:47 Antibiotics) Current Medications Generic Name Dose Route Start Last Admin Trade Name Dylonq PRN Reason Stop Dose Admin Sodium Chloride 1,000 mls @ 15 mls/hr 03/15/25 06:20 03/15/25 06:39 Sodium Chloride 0.9% IV 03/16/25 06:19 15 mls/hr .Q24H PRN Administration COLONOSCOPY FLUIDS PFSH Anesthesia Medical History Chronic back pain Gastroparesis Takotsubo cardiomyopathy Oral lichen planus Fibromyalgia GERD (gastroesophageal reflux disease) Hiatal hernia CAD (coronary artery disease) Hyperthyroidism Hyperlipidemia Hypertension Diabetes mellitus Surgical History (Updated 02/23/25 @ 13:[address]) History of elbow surgery left, tendon release History of anterior colporrhaphy History of knee surgery lefthis History of coronary artery bypass graft History of shoulder surgery right History of cholecystectomy History of hysterectomy with bilateral oophorectomy History of appendectomy History of tonsillectomy and adenoidectomy Family History Mother Dementia Cancer lung (nonsmoker but significant exposure) Father Cancer nonmelanoma skin Sister Cancer lung (smoker) Social History Smoking and tobacco/nicotine status: never used tobacco/nicotine Alcohol intake: never Substance/Drug Use: current Substance/Drug use frequency: daily Household members: spouse Marital status: Number of children: 3 Number of grandchildren: 6 Current occupational status: disabled Special mikala needs: No Agree to transfusion: Yes
[2025-03-15 08:10] VITALS: BP 96/57; PULSE 64; RESP 18; TEMP 36.6; O2SAT 96
--- NOTE | 2025-03-15 08:21 | ANE.PACU2 ---
Inpatient post-anesthesia follow up: Airway intact: Yes Vital signs: Temperature 97.8 F Pulse Rate 64 Respiratory Rate 18 Blood Pressure 96/57 Pulse Oximetry 96 Oxygen Delivery Me thod Room Air Oxygen Flow Rate Fraction of Inspir ed Oxygen Hydration adequate: Yes Nausea and vomiting: No Pain level: 1 Mental status: Baseline
== END 2025-03-15 08:44 | disposition home or self-care (01) ==
PROVIDERS: PCP Family Medicine; Visit Provider Surgery
PROC: 0DJD8ZZ Inspection of Lower Intestinal Tract, Via Natural or Artificial Opening Endoscopic (ICD-10-PCS; CPT 45378; principal; 2025-03-15 07:55)
DX: Z12.11 Encounter for screening for malignant neoplasm of colon (principal); I48.91 Unspecified atrial fibrillation; I25.10 Atherosclerotic heart disease of native coronary artery without angina pectoris; I10 Essential (primary) hypertension; K21.9 Gastro-esophageal reflux disease without esophagitis; E11.9 Type 2 diabetes mellitus without complications; E78.5 Hyperlipidemia, unspecified; J45.909 Unspecified asthma, uncomplicated; Z79.899 Other long term (current) drug therapy; Z79.82 Long term (current) use of aspirin; Z79.84 Long term (current) use of oral hypoglycemic drugs; Z79.4 Long term (current) use of insulin; Z79.85 Long-term (current) use of injectable non-insulin antidiabetic drugs; Z88.2 Allergy status to sulfonamides; Z91.040 Latex allergy status; Z88.8 Allergy status to other drugs, medicaments and biological substances
CPT/HCPCS: 36416; 82962; G0121; J2704; J7030

== ENCOUNTER 2025-03-20 13:05 | Outpatient (CLI) | payer MEDICARE, MEDICAID, SELFPAY ==
--- NOTE | 2025-03-20 13:20 | MM_ITS ---
WS: [id number] BILATERAL 3D TOMOSYNTHESIS DIGITAL SCREENING MAMMOGRAPHY WITH CAD CLINICAL INFORMATION: breast cancer screening HISTORY: Screening mammogram. No current complaints. COMPARISON: 2023 TECHNIQUE: Bilateral CC and MLO views. FINDINGS: Scattered fibroglandular densities bilaterally. No suspicious focal mass, asymmetry, calcifications, or architectural distortion. No evidence of malignancy. Incidental punctate and lucent centered calcifications. MM/MM scr tomosynthesis [id number] IMPRESSION: DENSITY: There are scattered areas of fibroglandular density. BI-RADS: 2 - Benign. FOLLOW UP: 1 Year Follow-up Recommend return to annual screening mammography.
== END 2025-03-20 13:06 | disposition home or self-care (01) ==
PROVIDERS: PCP Family Medicine; Visit Provider Family Medicine
DX: Z12.31 Encounter for screening mammogram for malignant neoplasm of breast (principal); R92.323 Mammographic fibroglandular density, bilateral breasts; R92.1 Mammographic calcification found on diagnostic imaging of breast
CPT/HCPCS: 77063; 77067

== ENCOUNTER → 2025-04-11 11:43 | Outpatient (BNVA) | payer MEDICARE, MEDICAID, SELFPAY | PROVIDERS: PCP Family Medicine; Visit Provider Podiatrist Foot & Ankle Surgery | DX: M25.571 Pain in right ankle and joints of right foot (principal); S93.491A Sprain of other ligament of right ankle, initial encounter; Q66.71 Congenital pes cavus, right foot; X58.XXXA Exposure to other specified factors, initial encounter | CPT/HCPCS: 73610; 99203 ==

== ENCOUNTER 2025-05-01 12:14 | Emergency (ER) | payer MEDICARE, MEDICAID, SELFPAY ==
[2025-05-01] VITALS (7 sets, daily range): BP systolic 82–132; BP diastolic 39–85; PULSE 87–117; RESP 16–18; TEMP 36.7; O2SAT 95–100; BMI 26.6
--- OUTSIDE RECORDS SUMMARY | 2025-05-01 12:19 | XMS_ITS | Encounter Summary ---
Author Organization [facility] Address [address] [place] [address] Care Team Providers Care Preformer [employer] Name Role Phone Unavailable Primary Care Provider Unavailabl e Encounter Details Date Type Department Care Team (Late st Contact Info) Description 04/26/2025 External Device Data [place]STRACTION Provider, Abstract NO ADDRESS ON FILE Social History Tobacco Use Types Packs/Day Years Used Date Smoking Tobacco: Former Cigarettes Q uit: 03/29/1984 Passive Smoke Exposure: Never Smokeless Tobacco: Never Alcohol Use Standard Drinks/Week Comments No 0 (1 standard drink = 0.6 oz pur e alcohol) Comments No Sex and Gender Information Value Date Recorded Sex Assigned at Not on file 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
--- OUTSIDE RECORDS SUMMARY | 2025-05-01 12:19 | XMS_ITS | Encounter Summary ---
Author Organization [facility] Address [address] [place] [address] Care Team Providers Care Supervisor Maintenance Name Role Phone Unavailable Primary Care Provider Unavailabl e Reason for Visit * Reason Onset Date Comments Medication Refill 04/26/2025 Encounter Details Date Type Department Care Team (Late st Contact Info) Description 04/26/2025 Refill [facility] Cardiology [facility], [facility] [address] [phone] Gurinder Rincon MD [address] [facility] [address] [place] [address] Mixed hyperlipidemia Social History Tobacco Use Types Packs/Day Years Used Date Smoking Tobacco: Former Cigarettes Q uit: 03/29/1984 Passive Smoke Exposure: Never Smokeless Tobacco: Never Alcohol Use Standard Drinks/Week Comments No 0 (1 standard drink = 0.6 oz pur e alcohol) Comments No Sex and Gender Information Value Date Recorded Sex Assigned at Not on file 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 Rincon documented in this encounter Plan of Treatment Upcoming Encounters Date Type Department Care Team (Late st Contact Info) Description 07/19/2025 1:00 PM CDT Office Visit [facility] Cardiology [facility] [address] [phone] Gurinder Rincon MD [address] [phone] documented as of this encounter Visit Diagnoses Diagnosis Mixed hyperlipidemia documented in this encounter
--- OUTSIDE RECORDS SUMMARY | 2025-05-01 12:19 | XMS_ITS | Clinical Summary ---
Author Organization [facility] Address [address] [place] [address] Care Team Providers Care Highway Worker Name Role Phone Unavailable Primary Care Provider Unavailabl e Allergies Active Allergy Reactions Criticality Noted Date Comments Ezetimibe Unknown Low 01/12/2024 Flagyl (As Hcl) Unknown Low 01/12/2024 Latex Itching Low 05/03/2010 Metronidazole Unknown High 01/25/2010 Milnacipran Weakness High 01/21/2012 Nystatin Anxiety High 01/25/2010 Sulfa (Sulfonamide Antibiotics) Unknown High 01/10 Medications ferrous fumarate (FERRETTS) 325 mg (106 mg iron) Tablet Take 325 mg by mouth daily. 04/27/20 19 Active Cholecalciferol, Vitamin D3, (VITAMIN D3) 10 mcg (400 unit) capsule Take 400 Units by mouth. 12/15/19 21 Active Blood-Glucose MeterIndications: Type 2 diabetes mellitus with hyperglycemia, without long-term current use of insulin ([facility]) USE TO TEST DAILY 1 Each 0 03/15/20 21 Active OneTouch Delica Plus Lancet 30 gauge USE TO TEST DAILY 100 Each 3 04/25/20 21 Active acetaminophen (TYLENOL ARTHRITIS) 650 mg Extended Release tablet Take 1,300 mg by mouth 2 times daily as needed for Pain. Active docusate sodium (COLACE) 100 mg capsule Take 100 mg by mouth 2 times daily. Active aspirin (JUSTYNA CHEWABLE) 81 mg Tablet, Chewable Take 81 mg by mouth daily. Active MULTIVITAMIN ORAL Take by mouth. Active cetirizine (ZyrTEC) 10 mg tablet Take 10 mg by mouth daily. Active nitroglycerin (NITROSTAT) 0.4 mg Tablet, Sublingual Place 0.4 mg under tongue every 5 minutes as needed. Active methIMAzole (TAPAZOLE) 10 mg tablet TAKE 2 TABLETS BY MOUTH DAILY 180 Tablet 3 12/09/19 22 Active Additional Information Patient taking differently: 10 mg Oral DAILY, Reported on 09/13/2024 lancets (Accu-Chek Softclix Lancets) TEST BLOOD SUGAR DIRECTED 100 Each 1 05/21/20 15 Active lancets 28 gauge Use to Test Blood Sugar Daily As Directed. 100 Each 3 03/23/20 15 Active blood sugar diagnostic Strip Check blood sugars once daily. 100 Strip 03/23/20 Active Miscellaneous Medical SupplyIndications :Controlled type 2 diabetes mellitus without complication, without long-term current use of insulin (CMS/HCC) Lifescan one touch glucometer. DX E11.9 100 Each 02/07/20 23 Active Miscellaneous Medical SupplyIndications :Controlled type 2 diabetes mellitus without complication, without long-term current use of insulin (CMS/HCC) Lifescan one touch testing strips. Test once daily. DX E11.9 100 Each 02/07/20 23 Active amitriptyline (ELAVIL) 50 mg tabletIndications :Fibromyalgia TAKE 1 TABLET(50 MG) BY MOUTH DAILY AT BEDTIME 90 Tablet 4 04/08/20 23 Active albuterol sulfate HFA 90 mcg/actuation aerosol inhaler INHALE 2 PUFFS BY MOUTH EVERY 6 HOURS NEEDED FOR SHORTNESS OF BREATH 8.5 Gram 04/15/20 23 Active fluticasone propionate (FLONASE) 50 mcg/spray [place], Suspension nasal inhalerIndication s:Mild intermittent reactive airway disease without complication Administer 2 Sprays in each nostril daily. shake before using 16 Gram 5 09/21/20 23 Active Additional Information Patient taking differently:2 [place] Both NostrilsDAILY PRN, per patient, shake before using, Reported on 09/13/2024 DULoxetine (CYMBALTA) 60 mg Capsule, Delayed Release(E.C.) take 1 capsule by mouth daily 90 Capsule 1 11/12/19 24 Active pantoprazole (PROTONIX) 40 mg Tablet, Delayed Release (E.C.)Indications :Gastroesophageal reflux disease, unspecified whether esophagitis present TAKE 1 TABLET(40 MG) BY MOUTH DAILY 90 Tablet 3 02/08/20 24 Active alcohol (BD Single Use Swabs Regular) Pads, Medicated TO USE DIRECTED WITH INJECTIONS 100 Each 3 08/29/20 24 Active tiZANidine (ZANAFLEX) 4 mg Tablet Take 4 mg by mouth every 8 hours. Active rivaroxaban (Xarelto) 2.5 mg Tablet TAKE 1 TABLET BY MOUTH TWICE DAILY 180 Tablet 1 12/14/19 25 Active acarbose (PRECOSE) 25 mg tablet Take 25 mg by mouth 3 times daily with meals. Active dulaglutide (Trulicity) 4.5 mg/0.5 mL injection Inject 4.5 mg by subcutaneous injection every 7 days. Active metFORMIN (GLUCOPHAGE) 500 mg tablet Take 500 mg by mouth 2 times daily with meals. Active busPIRone (BUSPAR) 7.5 mg Tablet Take 7.5 mg by mouth daily. Active evolocumab (Repatha SureClick) 140 mg/mL Pen Injector ADMINISTER 1 ML UNDER THE SKIN EVERY 2 WEEKS 6 mL 3 02/11/20 25 Active losartan (COZAAR) 25 mg tabletIndications :Hypertension, essential Take 1 Tablet (25 mg) by mouth 2 times daily. 180 Tablet 1 03/16/20 25 Active metoprolol succinate (TOPROL XL) 25 mg Extended Release 24 hour tabletIndications :Palpitations,PVC 's (premature ventricular contractions),Dys pnea on exertion Take 1 Tablet (25 mg) by mouth 2 times daily. 180 Tablet 3 03/21/20 25 Active rosuvastatin (Crestor) 20 mg tabletIndications :Mixed hyperlipidemia Take 1 Tablet (20 mg) by mouth daily. 100 Tablet 3 04/27/20 25 Active rosuvastatin (Crestor) 20 mg tabletIndications :Mixed hyperlipidemia Take 1 Tablet (20 mg) by mouth daily. 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 care administrator (current) use of anticoagulants 2021 Chronic systolic heart failure 02/12/2022 Takotsubo cardiomyopathy 03/10/2021 Aneurysm, aorta, thoracic 06/02/2019 Oral lichen planus 08/26/2018 ILYA (obstructive sleep apnea) 09/11/2014 Vitamin B12 deficiency 05/18/2014 Hyperthyroidism 05/18/2012 Edema leg 03/29/2012 GERD (gastroesophageal reflux disease) 1 ADD (attention deficit disorder) 02/03/2011 Arthritis 02/03/2011 Fibromyalgia 10/30/2010 Hypertension, essential 10/09/2010 Chronic pain 10/09/2010 Hyperlipidemia 02/08/2010 Coronary artery disease of n ative artery of [place] heart with stable angina pectoris 02/08/2010 Overview (03/27/2021): January 282011 - S/P cardiac cath . Emergency Bypass in 1995 - [facility]. Controlled type 2 diabetes m ellitus without complication, without long-term current use of insulin 02/08/2010 Overview (03/27/2021): Since 2006. Last Hg A1C - last month 7.7. Usually - 7. 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 and [facility] [address] [place] [address] Gurinder Rincon MD Mixed hyperlipidemia 04/25/2025 External Device Data STL ABSTRACTION Provider, Abstract 04/11/2025 1:53 PM CDT - 04/11/2025 11:59 PM CDT Hospital Encounter [facility] Respiratory Therapy Services [address] [phone] Gurinder Rincon MD Discharge Disposition: Home or Self Care 03/28/2025 External Device Data STL ABSTRACTION Provider, Abstract 03/21/2025 12:00 PM CDT Office Visit [facility] and [place] [address] [place] [address] Gurinder Rincon MD Palpitations (Primary Dx); PVC's (premature ventricular contractions); Dyspnea on exertion 03/16/2025 Refill [facility] and [place] [address] [place] [address] Gurinder Rincon MD Hypertension, essential 03/16/2025 Chart Note [facility] and [place] [address] [place] [phone] Rosa Villanueva RN move up appt 03/13/2025 10:43 AM CDT - 03/13/2025 11:59 PM CDT Hospital Encounter [facility] Respiratory Therapy Services [address] [phone] Gurinder Rincon MD Discharge Disposition: Home or Self Care 03/08/2025 1:30 PM CDT Office Visit [facility] and [place] [address] [place] [address] Gurinder Rincon MD senior living (current) use of anticoagulants (Primary Dx); Chronic systolic heart failure (CMS/HCC); Palpitations; Hypertension, essential; Coronary artery disease involving [place] coronary artery of [place] heart without angina pectoris; Anticoagulated by anticoagulation treatment; H/O heart bypass surgery 03/07/2025 Telephone [facility] and [place] [id number] [place] [address] Gurinder Rincon MD Shortness of Breath 02/10/2025 Refill [facility] [place] [facility] [address] [facility] [address] [place] [address] Gurinder Rincon MD from Last 3 Months Immunizations Immunization Administration Dates Next Due (ADACEL/BOOSTRIX)(10 YR UP) TDAP VACCINE, 0.5ML, IM 05/05/2012 (PNEUMOVAX 23)(50 YRS UP) PN EUMOCOCCAL POLYSACCHARIDE (PPV23) 0.5 ML, IM 05/20/2019 (PREVNAR 13)(6 WKS UP) PNEUM OCOCCAL CONJUGATE (PCV13) 0.5 ML, IM 07/23/2014 INFLUENZA VACCINE QUADRIVALENT 6 MOS UP IM 07/16,10/28/2013 INFLUENZA VACCINE QUADRIVALE NT 6 MOS UP PF IM 07/10/2021,10/03/2020,09/27/2019 Influenza Seasonal Unspecifi ed Formulation IM 07/23/2014 Influenza Vaccine Split 3+ Yrs IM 07/15/2012 Pneumococcal Polysaccharide Vacc 23-brendan IM SCHIP 07/23/2014 Family History Medical History Relation Name Comments Healthy Brother 1 Healthy Brother 2 Healthy Brother 3 Hypertension Brother 4 Healthy Daughter 1 Healthy Daughter 2 Cancer Father Diabetes Mother Hypertension Sister Healthy Son Breast Cancer Neg Hx Negative Respo nses - see media tab Colon Cancer Neg Hx Ovarian Cancer Neg Hx Relation Name Status Comments Brother 1 Alive Brother 2 Alive Brother 3 Alive Brother 4 Alive Daughter 1 Alive Daughter 2 Alive Father Alive Maternal Grandfather Maternal Grandmother Mother Alive Paternal Grandfather Paternal Grandmother Sister Alive Son Alive Social History Tobacco Use Types Packs/Day Years Used Date Smoking Tobacco: Former Cigarettes Q uit: 03/29/1984 Passive Smoke Exposure: Never Smokeless Tobacco: Never Tobacco Cessation:Counseling Given: No Alcohol Use Standard Drinks/Week Comments No 0 (1 standard drink = 0.6 oz pur e alcohol) Comments No Sex and Gender Information Value Date Recorded Sex Assigned at Not on file 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 Gender Identity Not on file Sexual Orientation Not on file Last Filed Vital Signs Vital Sign Reading Time Taken Comments Blood Pressure 110/66 03/21/2025 12:42 PM CDT Pulse 80 03/21/2025 12:42 PM CDT Temperature 36.3 C (97.4 F) 03/26/2023 11:20 AM CDT Respiratory Rate 12 01/12/2024 1:33 PM CDT Oxygen Saturation 98% 03/21/2025 12:42 PM CDT Inhaled Oxygen Concentration - - Weight 76.3 kg (168 lb 3.2 oz) 03/21/2025 12:42 PM CDT Height 165.1 cm (5' 5 ) 03/21/2025 12:42 PM CDT Body Mass Index 27.99 03/21/2025 12:42 PM CDT Plan of Treatment Upcoming Encounters Date Type Department Care Team (Late st Contact Info) Description 07/19/2025 1:00 PM CDT Office Visit [facility] and [facility] [address] [phone] Gurinder Rincon MD [address] [facility] [address] [place] [address] Health Maintenance Due Date Last Done Comments HPV/Cotest (21-29) 1981 HPV/Cotest (30-65) 1990 FIT-DNA Q 3 years 2005 FIT/FOBT Q 1 year 2005 Flex Sig/CT Colonography Q 5 years 2005 ZOSTER VACCINE (1 of 2) 2010 DIABETES ANNUAL FOOT EXAM 07/02/2015 07/02/2014, 03/2011 CERVICAL CANCER SCREENING 07/21/2019 PAP SMEAR 07/21/2019 07/21/2016 RSV VACCINE (60+ or ) (1 - Risk 60-74 years 1-dose series) 2020 DTAP/TDAP/TD VACCINES (2 - T d or Tdap) 05/05/2022 05/05/2012 DIABETES ANNUAL RETINAL EXAM 01/14/2023 01/14/2022, 08/03/2013 COLORECTAL SCREENING 05/26/2023 05/26/2013, 05/26/2013, 05/25/2013 Colorectal Cancer Screening 05/26/2023 DIABETES HBA1C Q 6 MONTHS 08/15/20232022, 07/16/2022, 01/14/2022, Additional history exists BREAST CANCER SCREENING 08/22/2023 08/22/20 22, 08/20/2021, 02/07/2019, Additional history exists LDL CHOLESTEROL ANNUAL 11/26/2023 3, 01/14/2022, 07/10/2021, Additional history exists DIABETES MICROALBUMIN ANNUAL SCREEN 02/13/2024 02/12/2023, 01/14/2022, 10/03/2020, Additional history exists INFLUENZA VACCINE (#1) 2025 2, 07/10/2021, 10/03/2020, Additional history exists Procedures Procedure Name Priority Date/Time Associated Diagnosis Comments PULMONARY FUNCTION TEST Routine 04/12/2025 6:45 AM CDT Palpitations PVC's (premature ventricular contractions) Dyspnea on exertion CARDIAC EVENT MONITOR Routine 03/13/2025 10:45 AM CDT Chronic systolic heart failure (CMS/HCC) Palpitations senior living (current) use of anticoagulants Hypertension, essential Coronary artery disease involving [place] coronary artery of [place] heart without angina pectoris Anticoagulated by anticoagulation treatment H/O heart bypass surgery NV ECG ROUTINE ECG W/LEAST 12 LDS W/I&R Routine 03/08/2025 2:09 PM CDT senior living (current) use of anticoagulants Chronic systolic heart failure (CMS/HCC) MICROALBUMIN/CREAT ININE RATIO, RANDOM UR Routine 02/12/2023 2:52 PM CDT Controlled type 2 diabetes mellitus without complication, without long-term current use of insulin (CMS/HCC) HEMOGLOBIN A1C Routine 02/12/2023 2:52 PM CDT Controlled type 2 diabetes mellitus without complication, without long-term current use of insulin (CMS/HCC) LIPID RFLX Routine 11/26/2022 12:06 PM ORGAN INSTALLER Type 2 diabetes mellitus without complication, without long-term current use of insulin (CMS/HCC) MAMMO 3D TAMMY SCREEN BILAT W OR WO CAD Routine 08/22/2022 1:09 PM ORGAN INSTALLER Visit for screening mammogram ENDOSCOPY, COLON, SCREENING Routine 05/26/2013 9:29 AM CDT from Last 3 Months or Most Recently Relevant to Health Maintenance Results * PULMONARY FUNCTION TEST (04/12/2025 6:45 AM CDT) Impressions Tony Chamorro MD - 04/12/2025 6:45 AM CDT Normal spirometry. Lung volumes indicate mild hyperinflation. Diffusion capacity is within normal limits. Recommend clinical correlation Tony Chamorro MD,MPH Pulmonary and Critical Care On 04/12/2025 at 6:45 AM. Gurinder Rincon MD PFT ORDERABLES Final Result * CARDIAC EVENT MONITOR (03/13/2025 10:45 AM CDT) Narrative [facility] - 03/13/2025 10:45 AM CDT Carley Uribe MD 03/21/2025 8:15 AM Baseline: sinus Symptoms: palpitation, dizziness, SOB, CP correlated to sinus 70-120 bpm with rare PAC and frequent unifocal PVC Main findings: sinus rhythm with frequent unifocal PVC without significant AV block, afib/flutter or SVT. No VT. Gurinder Rincon MD CARDIAC SERVICES ORDERABLES Fi nal Result [facility] CLIA [id number] [address] [place] [address], [place] [phone] * [place] ECG ROUTINE ECG W/LEAST 12 LDS W/I&R (03/08/2025 2:09 PM CDT) Narrative Jesica Hughes - 03/08/2025 2:09 PM CDT Gurinder Rincon MD 03/08/2025 2:18 PM Normal sinus rhythm nonspecific ST-T wave changes. Procedure Note Gurinder Rincon MD - 03/08/2025 2:09 PM CDT Normal sinus rhythm nonspecific ST-T wave changes. Gurinder Rincon MD ECG ORDERABLES Final Result * MICROALBUMIN/CREATININE RATIO, RANDOM UR (02/12/2023 2:52 PM CDT) Creatinine, Urine 25 20 - 275 mg/dL [facility] MICROALBUMIN, URINE <0.2 See Note: mg/dL [facility] Comment: Reference Range: Reference Range Not established MICROALBUMIN/CREAT RATIO, UR NOTE <30 mcg/mg creat [facility] Comment: NOTE: The urine albumin value is less than 0.2 mg/dL therefore we are unable to calculate excretion and/or creatinine ratio. The ADA defines abnormalities in albumin excretion as follows: Albuminuria Category Result (mcg/mg creatinine) Normal to Mildly increased <30 Moderately increased 30-299 Severely increased > OR = 300 The ADA recommends that at least two of three specimens collected within a 3-6 month period be abnormal before considering a patient to be within a diagnostic category. Test Performed at: [facility] [address] [place] [address] Krysten Shabazz MD Urine URINE SPECIMEN OBTAINED BY CLEAN CATCH PROCEDURE / Unknown 02/12/2023 2:52 PM CDT 02/13/2023 4:51 AM CDT Abdiel Choe DO URINE ORDERABLES Final Result [facility] [phone] [facility] [address] [facility] [phone] * (ABNORMAL) HEMOGLOBIN A1C (02/12/2023 2:52 PM CDT) HEMOGLOBIN A1C 6.8(H) <5.7 % of total Hgb [facility] Comment: For someone without known diabetes, a hemoglobin A1c value of 6.5% or greater indicates that they may have diabetes and this should be confirmed with a follow-up test. For someone with known diabetes, a value <7% indicates that their diabetes is well controlled and a value greater than or equal to 7% indicates suboptimal control. A1c targets should be individualized based on duration of diabetes, age, comorbid conditions, and other considerations. Currently, no consensus exists regarding use of hemoglobin A1c for diagnosis of diabetes for children. ESTIMATED AVERAGE GLUCOSE (MG/DL) 148 mg/dL [facility] ESTIMATED AVERAGE GLUCOSE (MMOL/L) 8.2 mmol/L [facility] Comment: Test Performed at: [facility] [address] [place] [address] Krysten Shabazz MD Blood 02/12/2023 2:52 PM CDT 02/13/2023 4:51 AM CDT us Abdiel Choe DO CHEMISTRY ORDERABLES Final Resu lt [facility] [phone] [facility] [address] [place] [address] * (ABNORMAL) LIPID RFLX (11/26/2022 12:06 PM ORGAN INSTALLER) CHOLESTEROL 159 <200 mg/dL [facility] HDL 56 > OR = 50 mg/dL [facility] TRIGLYCERIDE 222(H) <150 mg/dL [facility] Comment: If a non-fasting specimen was collected, consider repeat triglyceride testing on a fasting specimen if clinically indicated. Macy et al. J. of Clin. Lipidol. 2015;9:129-169. LDL CALCULATED 72 mg/dL (calc) [facility] Comment: Reference range: <100 Desirable range <100 mg/dL for primary prevention; <70 mg/dL for patients with CHD or diabetic patients with > or = 2 CHD risk factors. LDL-C is now calculated using the Boston calculation, which is a validated novel method providing better accuracy than the Friedewald equation in the estimation of LDL-C. Sly MUNGUIA et al. MARY. 2013;310(19): 3361-1873 (http://education.Ele.me/faq/HKI685) CHOL/HDL RATIO 2.8 <5.0 (calc) [facility] TOTAL NON-HDL CHOL(LDL+VLDL) 103 <130 mg/dL (calc) [facility] Comment: For patients with diabetes plus 1 major ASCVD risk factor, treating to a non-HDL-C goal of <100 mg/dL (LDL-C of <70 mg/dL) is considered a therapeutic option. FASTING:NO FASTING: NO Test Performed at: [facility] [address] [place] [address] Krysten Shabazz MD Blood 11/26/2022 12:0 6 PM ORGAN INSTALLER 11/26/2022 12:07 PM ORGAN INSTALLER Cassidy Pena MACHINE CANDLE MOLDER CHEMISTRY ORDERABLES Estefanía l Result [facility] [phone] [facility] [address] [place] [address] * MAMMO SCRN BILAT 3D TAMMY W OR WO CAD (08/22/2022 1:09 PM ORGAN INSTALLER) Anatomical Region Laterality Modality Breast Bilateral Mammography 08/22/2022 1:09 PM ORGAN INSTALLER Narrative 08/22/2022 2:08 PM ORGAN INSTALLER Screening 3-D digital breast tomosynthesis and mammogram with CAD. History: Screening. Comparison: 09/09/2012, 10/06/2013, 11/15/2014, 08/20/2021 Findings: The breast tissue is composed of scattered fibroglandular densities. No suspicious masses, clustered microcalcifications, or suspicious architectural distortion. Scattered bilateral benign-appearing calcifications right greater than left without significant change. Impression: No mammographic evidence of malignancy. In the absence of clinical findings, a screening mammogram should be obtained in one year. BI-RADS 2: Benign findings. Breast Density Category: B ST Location 11 Rachid Choe SENIOR PHP SOFTWARE DEVELOPER MAMMO ORDERABLES Final Result * ENDOSCOPY, COLON, SCREENING (05/26/2013 9:29 AM CDT) 05/26/2013 9:29 AM CDT Narrative Procedure Note Oswaldo Edmonds MD - 05/25/2013 12:00 AM CDT Procedures signed by Oswaldo Edmonds MD at 05/26/2013 9:29 AM Author: Oswaldo Edmonds MD Service: -- Author Type: Physician Filed: 05/26/2013 9:29 AM Date of Service: 05/26/2013 9:20 AM Status:Signed Line Analyst: Oswaldo Edmonds MD (Physician) Procedure Orders 1. *colonosccopy-screening [[id number]] ordered by at 02/07/13 0909 [place], [place] Patient: MICHELLE GUADARRAMA CSN: [id number] : 1960 Provider: Oswaldo Edmonds MD ENDOSCOPY PROCEDURE REPORT DATE: 05/25/2013 REFERRING PHYSICIAN: Dr. Ulrich ENDOSCOPIST: Oswaldo Edmonds MD PROCEDURE PERFORMED: Colonoscopy. INDICATIONS FOR PROCEDURE: Screening for colorectal neoplasm. MEDICATIONS: Versed 6 mg IV and fentanyl 150 mcg IV in titrated doses. DESCRIPTION OF PROCEDURE: After reviewing the risks, benefits, andalternatives of the procedure with the patient, she signed a consent form.She was placed in the left lateral decubitus position and IV conscioussedation was administered, while monitoring blood pressure, pulseoximetry, and EKG. The colonoscope was introduced through the rectum andunder direct visualization was advanced to the terminal ileum. Carefulinspection of the mucosa was made as the colonoscope was withdrawn. Thequality of the preparation was good. The patient tolerated the procedurewell and there were no immediate complications. FINDINGS: Retroflexed examination in the rectum revealed small internalhemorrhoids. The rest of visualized colonic mucosa was normal as was theterminal ileum. IMPRESSION: Internal hemorrhoids. RECOMMENDATIONS: Screening colonoscopy in 10 years. Oswaldo Edmonds MD MMODL D: [id number] V: [id number] cc: Yael Ulrich MD us Yael Ulrich MD GI PROCEDURE ORDERABLES Final Result [facility] from Last 3 Months or Most Recently Relevant to Health Maintenance Insurance [place] Member Subscriber Plan / Payer (Ef fective 2021-Present) Name:Michelle Guadarrama Relation to Subscriber:Self Name:Michelle Guadarrama Payer ID:Not on file Group ID:Not on file Type:Medicaid Address: [address] [employer] [facility] [place] Member Subscriber Plan / Payer (Ef fective 2023-Present) Name:Michelle Guadarrama Relation to Subscriber:Self Name:Michelle Guadarrama Payer ID:[id number] Group ID:Not on file Type:Medicaid Address: [address] Advance Directives For more information, please contact: [phone] Documents on File Type Date Recorded Patient Director Of [employer] Expl anation Advance Directive POA 11/15/2020 1:53 PM Ad palmer Directive POA
--- OUTSIDE RECORDS SUMMARY | 2025-05-01 12:19 | XMS_ITS | Encounter Summary ---
Author Organization [facility] Address [address] [place] [address] Care Team Providers Care Medical Office Rep Name Role Phone Unavailable Primary Care Provider Unavailabl e Encounter Details Date Type Department Care Team (Late st Contact Info) Description 04/25/2025 External Device Data STL ABSTRACTION Provider, [...] on file Legal Sex Female 11:25 AM CRTS Gender Identity Not on file Sexual Orientation Not on file documented as of this encounter Plan of Treatment Upcoming Encounters Date Type Department Care Team (Late st Contact Info) Description 07/19/2025 1:00 PM CDT Office Visit [facility] [place] [facility] [address] [address] Gurinder Rincon MD [address] [address] documented as of this encounter Visit Diagnoses Not on filedocumented in this encounter
--- OUTSIDE RECORDS SUMMARY | 2025-05-01 12:19 | XMS_ITS | Patient Health Record ---
Author Organization [facility] Address [address] [place], [place] [id number] Care Team Providers Care Bag Liner Name Role Phone Maria Alejandra CHAN, Sinan Unavailable [phone] Betty CHAN, Jenny Unavailable Unavailable Allergies Allergen (clinical drug ingredient) Drug/Non Drug Allergy documented on EMR Reaction Allergy Type Onset Date Status metronidazole flagyl (uncoded) rash Allergy Active Latex LATEX (uncoded) rash, respirator y distress Allergy Active nystatin (uncoded) anxiety Allergy Active sulfa (uncoded) rash Allergy Acti ve Reason For Referral No Information Medications Medication SIG (Take, Route, Frequency, Duration) Notes Start Date End Date Status metFORMIN 500 mg 2 tabs/1 tab orally AM/PM for 30 day(s) Active Salonpas 1 patch topical PRN Active ibuprofen 200 mg 2 tab(s) orally Q4H PRN for 10 day(s) Active ASA 325 mgm 1 QAM for 30 days Active atenolol 100 mg 1 tab(s) orally once a day for 30 day(s) Active nitroglycerin 0.4 mg 1 tab(s) sublingual ly Q5MIN prn for 3 dose(s) Active Flonase 0.05 mg/inh 2 spray(s) in each n ostril once a day for 0 Active Nexium 40 mg 1 tab Oral qd for 30 days Active Phenergan 25 mg 1 tab(s) PO orally Q 6H prn nausea Active Estro Plus OTC 1 cap once a day Active carisoprodol 350 mg 1 tab(s) PO orally TID prn 10/1900 Active norco 10/325 1 tab(s) PO orally Q 4H prn pain Active Lidoderm patch 5 % 10x14 cm patch apply to affected area transdermally Q12H on/Q12H off for 30 days 02/07/2008 Active Plan Of Treatment No Information Insurance Providers Payer Name Payer Address Payer Phone Subscriber Number Group Number Insured Name Patient Relationship to Insured Coverage Start Date Coverage End Date [employer] Medicare Part B Claims Department [address] [address] [place] [address] [id number] GuadarramaZarina ricea Self - patient is the insured [place] [address] [place] [address] [id number] Zarina Guadarramaa Self - patient is the insured Medical (General) History Medical History History ICD Code Coronary artery disease Esophageal reflux Degenerative disc disease Major depression (history of) Morphine pump overdose (history of) Low back pain Sleep apnea Surgical History Surgery Date(Month/Year) Pain Pump Insert 2004 Neurostimulation trial without benefit/w ith benefit () Shoulder Arthroscopy 2000 & 2001 Abdominal Adhesion removal 1996 Appendectomy 1995 Hysterectomy 1995 Cardiac bypass surgery 1995 Elbow tendon release 1990 Knee surgery 1989 Tonsillectomy 1989 Tubal ligation 1988 Pain Pump removal 10/26/2007 Permanent DCS placement 10/26/2007 Hospitalization History Reason Date(Month/Year) Surgeries Morphine Overdose with pain pump
--- NOTE | 2025-05-01 12:57 | ECG_ITS ---
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 Measurements Intervals [place] Rate: 108 P: 66 TN: 166 QRS: 26 QRSD: 97 T: 252 QT: 339 QTc: 455 Interpretive Statements SINUS TACHYCARDIA WITH FREQUENT VENTRICULAR PREMATURE COMPLEXES POSSIBLE LEFT ATRIAL ENLARGEMENT [-0.1mV P-WAVE IN V1/V2] ST DEVIATION AND MODERATE T-WAVE ABNORMALITY, CONSIDER INFERIOR ISCHEMIA [-0.1+ mV T-WAVE IN II/aVF] Compared to ECG 07/01/2017 10:28:04 Ventricular premature complex(es) now present Possible ischemia now present Sinus rhythm no longer present T-wave abnormality still present Electronically Signed On 05-01-2025 16:57:27 CDT by Tricia Davidson M.D. [email or web address]
--- NOTE | 2025-05-01 13:39 | CT_ITS ---
WS: [id number] CT HEAD NONCONTRAST HISTORY: head injury TECHNIQUE: Contiguous axial imaging performed through the brain. Bone and soft tissue windows. Sagittal and coronal reformats reviewed. All CT scans at [facility] use at least one of these dose optimization techniques: automated exposure control; mA and/or kV adjustment per patient size (includes targeted exams where dose is matched to clinical indication); or iterative reconstruction. DLP: 1045.38 mGy.cm COMPARISON: None available. No acute intracranial hemorrhage, midline shift or mass effect. No atrophy or prior infarcts or herniation. Ventricles: Normal size with no hydrocephalus. Paranasal sinuses: As visualized are clear. Mastoid air cells: Well pneumatized. Calvarium and scalp: No skull fracture. Soft tissue stranding from contusion centered over the RIGHT frontal bone and just above the orbit. CT/CT head wo con* [id number] IMPRESSION: 1. Focal RIGHT frontal scalp contusion. 2. No skull fracture. 3. No intracranial bladder hemorrhage.
--- NOTE | 2025-05-01 14:45 | CT_ITS ---
WS: [id number] CT CERVICAL SPINE HISTORY: fall TECHNIQUE: Contiguous 2.0 mm axial imaging performed through the entire cervical spine. Sagittal and coronal reformats also performed. All CT scans at [facility] use at least one of these dose optimization techniques: automated exposure control; mA and/or kV adjustment per patient size (includes targeted exams where dose is matched to clinical indication); or iterative reconstruction. DLP: 165.87 mGy.cm COMPARISON: None available. Normal cervical alignment. Craniocervical junction, atlantodental interval and C1-C2 alignment is normal. Facet joints are narrowed but normally aligned. No pedicle or lamina fractures. No high-grade central or foraminal stenosis. Mild LEFT foraminal stenosis at C4-5. Paravertebral soft tissues are negative for acute process. Bilateral mild atherosclerotic deposition in the cervical carotid arteries. Lung apices are clear. CT/CT cervical spin wo con* [id number] IMPRESSION: 1. No acute cervical spine fracture. 2. Facet joints are normally aligned with no subluxation or displacement. 3. No high-grade central stenosis.
--- NOTE | 2025-05-01 14:45 | W.ED.FALL ---
HPI - Fall General: Chief Complaint: Fall Stated Complaint: fell-hit right side forehead Time Seen by Provider: 05/01/25 14:26 Source: patient Mode of arrival: ambulatory Limitations: no limitations History of Present Illness: 64-year-old female who presents to the ED with head and neck pain s/p fall this morning at about 1015. Patient states that she felt jittery and fell and hit her head on her concrete floor. She denies any LOC. Was able to get back up after her fall. Denies any back pain or pain anywhere else. She states that last night she took half of her tizanidine before going to bed. She has had other episodes of falls throughout the year, which she thinks is possibly due to her tizanidine. She admits to chronic orthostatic dizziness but knows to just not stand up too fast. She had no dizziness or lightheadedness before her fall today. She also denies any chest pain, palpitations, or shortness of breath prior to her fall today. She has a history of intermittent atrial fibrillation but is not currently on medication for this. No other complaints at this time. MD complaint: fall Onset (ago): hour(s) (4) Fall from: standing Fall witnessed: no Place fall occurred: home Loss of consciousness: None Prolonged down time: no Symptoms prior to fall: none Location of injury: head and neck Associated symptoms-after fall: Reports headache(s) and neck pain (somewhat chronic with her fibromyalgia); Denies abdominal pain, chest pain or confusion Related Data Home Medications ?Medication ?Instructions ?Recorded ?Confirmed evolocumab 140 mg/mL subcutaneous 140 mg SUBCUT DIRECTED 06/14/23 05/01/25 pen injector (Aylin Jeffrey) aspirin 81 mg tablet,delayed 81 mg PO DAILY 08/17/23 05/01/25 release biotin 5,000 mcg chewable tablet 5,000 mcg PO DAILY 08/17/23 05/01/25 calcium 600 mg (as 2 cap PO DAILY 08/17/23 05/01/25 carbonate)-vitamin D3 12.5 mcg (500 unit) capsule cetirizine 10 mg tablet 10 mg PO DAILY PRN Allergy Symptoms 08/17/23 05/01/25 ferrous sulfate 325 mg (65 mg 325 mg PO DAILY 08/17/23 05/01/25 iron) tablet (iron) magnesium oxide 400 mg PO DAILY 08/17/23 05/01/25 mecobalamin (vitamin B12) 1,000 1,000 mcg PO DAILY 08/17/23 05/01/25 mcg chewable tablet omega-3 fatty acids 1,000 mg 1,000 mg PO DAILY 08/17/23 05/01/25 capsule rivaroxaban 2.5 mg tablet (Xarelto) 2.5 mg PO BID 08/17/23 05/01/25 losartan 25 mg tablet 25 mg PO DAILY 04/26/25 05/01/25 metoprolol succinate 25 mg 25 mg PO QPM 04/26/25 05/01/25 tablet,extended release 24 hr acarbose 25 mg tablet 25 mg PO TID 05/01/25 05/01/25 amitriptyline 50 mg tablet 50 mg PO BEDTIME 05/01/25 05/01/25 buspirone 7.5 mg tablet 7.5 mg PO BID 05/01/25 05/01/25 carvedilol 6.25 mg tablet 6.25 mg PO BID 05/01/25 05/01/25 insulin degludec 100 unit/mL (3 21 unit SUBCUT DAILY 05/01/25 05/01/25 mL) subcutaneous pen (Tresiba FlexTouch U-100 insulin) nitroglycerin 0.4 mg sublingual 0.4 mg sublingual Q5M PRN Chest 05/01/25 05/01/25 tablet (Nitrostat) Pain ondansetron 8 mg disintegrating 8 mg PO TID PRN Nausea And Vomiting 05/01/25 05/01/25 tablet Previous Rx's ?Medication ?Instructions ?Recorded 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 meter #1 ea 10/20/23 lancets 30 gauge (OneTouch #100 ea 11/23/23 UltraSoft 2 Lancet) 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,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,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 #1 ea 03/25/24 (Dexcom G7 [employer]) cane #1 ea 08/26/24 blood sugar diagnostic (OneTouch #100 strips 11/23/24 Ultra Test strips) methimazole 5 mg tablet 5 mg PO DAILY 1 month #30 tabs 01/04/25 pen needle, diabetic 32 gauge x #100 ea 02/08/25 tirzepatide 10 mg/0.5 mL 10 mg (0.5 mL) SUBCUT Q7D 1 month 02/27/25 subcutaneous pen injector #2.5 mL (Navid) albuterol sulfate 90 mcg/actuation 2 puff inhalation Q6H PRN 03/07/25 aerosol inhaler shortness of breath or wheezing #8.5 grams rosuvastatin 20 mg tablet 40 mg (2 x 20 mg) PO DAILY #90 tabs 03/13/25 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 sensor (Dexcom G7 #9 ea 04/20/25 Sensor device) duloxetine 30 mg capsule,delayed 30 mg PO DAILY #90 caps 04/26/25 release (Cymbalta) duloxetine 60 mg capsule,delayed 60 mg PO DAILY #90 caps 04/26/25 release fluticasone propionate 50 See Rx Instructions .Route 04/26/25 mcg/actuation nasal .COMPLEX #16 grams spray,suspension pantoprazole 40 mg tablet,delayed 40 mg PO DAILY #90 tabs 04/26/25 release cefdinir 300 mg capsule 300 mg PO BID 7 days #14 caps 05/01/25 Allergies Allergy/AdvReac Type Severity Reaction Status Date / Time latex Allergy ALGY-Anaphy Verified 04/26/25 14:12 laxis metronidazole (From Flagyl) Allergy ALGY-Hives Verified 04/26/25 14:12 milnacipran (From Savella) Allergy sweating Verified 04/26/25 14:12 nystatin Allergy ADR-Anxiety Verified 04/26/25 14:12 Sulfa (Sulfonamide Allergy ALGY-Rash Verified 04/26/25 14:12 Antibiotics) Review of Systems Const: Denies: fever(s), chills, body aches, fatigue or malaise Eyes: Denies: change in vision, blurry vision, photophobia, floaters or seeing flashes Card: Reports: irregular heart rhythm (history of paroxysmal atrial fib) and dyspnea on exertion (chronic); Denies: chest pain, palpitations, edema, swelling of feet/ankles or syncope Resp: Denies: dyspnea, productive cough, non-productive cough or chest congestion GI: Denies: abdominal pain, nausea, vomiting or diarrhea : Denies: flank pain or dysuria Musc: Reports: neck pain (somewhat chronic with her fibromyalgia); Denies: back pain, extremity pain, extremity swelling, joint pain, joint swelling or joint redness Neuro: Reports: headache(s); Denies: numbness in extremities, weakness in extremities, sensory changes, dizziness or confusion PFSH ED PFSH: Medical History Chronic back pain Gastroparesis Takotsubo cardiomyopathy Oral lichen planus Fibromyalgia GERD (gastroesophageal reflux disease) Hiatal hernia CAD (coronary artery disease) Hyperthyroidism Hyperlipidemia Hypertension Diabetes mellitus Surgical History History of elbow surgery left, tendon release History of anterior colporrhaphy History of knee surgery lefthis History of coronary artery bypass graft History of shoulder surgery right History of cholecystectomy History of hysterectomy with bilateral oophorectomy History of appendectomy History of tonsillectomy and adenoidectomy Family History Mother Dementia Cancer lung (nonsmoker but significant exposure) Father Cancer nonmelanoma skin Sister Cancer lung (smoker) Social History Smoking and tobacco/nicotine status: never used tobacco/nicotine Alcohol intake: never Substance/Drug Use: current Substance/Drug use frequency: daily Household members: spouse Marital status: Number of children: 3 Number of grandchildren: 6 Current occupational status: disabled Special mikala needs: No Agree to transfusion: Yes Physical Exam Const: COMMON NORMALS: no acute distress, average body habitus, patient oriented x3, no limitations, healthy appearing, alert and well nourished GENERAL APPEARANCE: cooperative and diaphoretic ORIENTATION/CONSCIOUSNESS: Yes awake, Yes oriented to person, Yes oriented to place and Yes oriented to time HENMT: HEAD & SCALP: contusion HEAD IMAGES:  1. scalp contusion; mild R superior periorbital ecchymosis; normal EOMs Eye: COMMON NORMALS: Equal, round and reactive pupils present and EOMs intact bilaterally GENERAL EYE: appearance normal, both eyes and all related structures and normal light reflex PERIORBITAL: periorbital findings abnormal (mild superior ecchymosis; no bony tenderness) PUPIL: Yes Equal, round and reactive pupils present DIRECT OPHTHALMOSCOPY: Yes normal light reflex Neck/C-Spine: GENERAL: Yes normal visual inspection CERVICAL SPINE: No step off deformity and Yes Paracervical muscle tenderness Chest: COMMONS NORMALS: normal inspection of the chest and normal palpation of entire chest wall Resp: COMMON NORMALS: normal respiratory effort and clear to auscultation bilaterally AUSCULTATION: clear to auscultation bilaterally Cardio: COMMON NORMALS: regular rhythm RATE: tachycardic (at times) RHYTHM: regular rhythm GI: COMMON NORMALS: Normal to inspection, nondistended, normoactive bowel sounds present, Soft to palpation, non-tender and no masses PALPATION: Yes Soft to palpation Back/Pelvis: COMMON NORMALS: thoracic and lumbar spine normal to inspection and no thoracic nor lumbar tenderness Extremity: COMMON NORMALS: normal to inspection, capillary refill normal, no clubbing, cyanosis or edema, no calf tenderness and no pedal edema GENERAL: Yes normal exam except as noted Neuro: YODIT COMA SCALE: document GCS findings Yodit coma scale eye opening: Spontaneous Yodit coma scale verbal response: Orientated Yodit coma scale motor response: Obey commands [place] coma scale total score: 15 COMMON NORMALS: patient oriented x3, CN's II-XII intact bilaterally, moves all extremities, no focal motor deficits, no sensory deficits noted and gait normal SENSORIUM/ORIENTATION: Yes alert, Yes oriented to person, Yes oriented to place and Yes oriented to time Skin: TRAUMA: no lacerations or abrasions Course Vital Signs: Vital signs: Vital Signs Temperature 98.1 F 05/01/25 12:49 Pulse Rate 102 H 05/01/25 16:18 Respiratory Rate 16 05/01/25 16:18 Blood Pressure 113/59 05/01/25 16:18 Pulse Oximetry 100 05/01/25 16:18 Oxygen Delivery Me thod Room Air 05/01/25 12:49 MDM - Fall Medical Decision Making Patient appears in no acute distress. Her vital signs have been stable. Blood work showing a normal white count. Minor derangements noted on her chemistry-none of which require emergent correction. Recommend she increase fluid intake. UA suspicious for cystitis with 3+ leukocyte esterase and greater than 100 WBCs. She will be placed on antibiotics for this. She is not having any chest pain nor had any earlier today prior to the fall. Her baseline troponin is negative. Based on timeline, she does not require repeat 2-hour troponin. EKGs show some nonspecific T wave abnormalities. Again she is asymptomatic with a normal trop. Recommend she follow-up with her primary care provider later this week. She did have imaging of her CT head/cervical spine for evaluation following the fall and these were unremarkable. Medical Records I reviewed the patient's medical records. Lab Data I reviewed the patient's lab results. 05/01/25 15:29 05/01/25 15:[address] 05/01/25 13:39 IMPRESSION: 1. Focal RIGHT frontal scalp contusion. 2. No skull fracture. 3. No intracranial bladder hemorrhage. Cervical Spine CT 05/01/25 14:45 IMPRESSION: 1. No acute cervical spine fracture. 2. Facet joints are normally aligned with no subluxation or displacement. 3. No high-grade central stenosis. Chest X-Ray 05/01/25 15:31 IMPRESSION: 1. No acute cardiopulmonary abnormality. 2. Right AC joint separation of indeterminate acuity. Laboratory Results WBC 10.70 10^3/uL (3.29-11.43) 05/01/25 15: RBC 5.04 10^6/uL (3.85-5.65) 05/01/25 15: Hgb 15.60 g/dL (11.27-16.99) 05/01/25 15: Hct 46.4 % (36-47) 05/01/25 15: MCV 92.1 fl (85-98) 05/01/25 15: MCH 31.0 pg (27-33) 05/01/25 15: MCHC 33.6 g/dL (30-55) 05/01/25 15: RDW 12.9 % (12.1-15.1) 05/01/25 15: Plt Count 207 10^3/cmm (157-399) 05/01/25 15: MPV 10.8 fL (7.4-10.4) H 05/01/25 15: Neut % (Auto) 69.6 % 05/01/25 15: Lymph % (Auto) 22.4 % 05/01/25 15: [place] % (Auto) 5.8 % 05/01/25 15: Eos % (Auto) 1.2 % 05/01/25 15: Baso % (Auto) 0.4 % 05/01/25: Neut # (Auto) 7.45 10^3/uL (1.8-7.7) 05/01/25 15:29 Lymph # (Auto) 2.4 10^3/uL (0.8-4.8) 05/01/25 15: [place] # (Auto) 0.6 10^3/uL (0.2-0.9) 05/01/25 15: Eos # (Auto) 0.1 10^3/uL (0.0-0.8) 05/01/25 15: Baso # (Auto) 0.0 10^3/uL (0.0-0.1) 05/01/25 15: Nucleated RBC % (auto) 0 % 05/01/25 15: Nucleated RBCs # 0.0 /100WBC 05/01/25 15: D-Dimer 0.36 ug/mLFEU (0-0.59) 05/01/25 15: Sodium 130 mmol/L (136-145) L 05/01/25 15: Potassium 4.8 mmol/L (3.5-5.1) 05/01/25 15: Chloride 92 mmol/L (98-107) L 05/01/25 15: Carbon Dioxide 19 mmol/L (22-29) L 05/01/25 15: Anion Gap 23.8 (5-19) H 05/01/25 15: BUN 13 mg/dL (8-23) 05/01/25 15: Creatinine 1.1 mg/dL (0.5-0.9) H 05/01/25 15: GFR Calculation 50.0 mL/min (90-130) L 05/01/25 15: Glucose 125 mg/dL (65-115) H 05/01/25 15: Calculated Osmolality 272 mOsm/kg (285-295) L 05/01/25 15: Calcium 10.1 mg/dL (8.5-10.5) 05/01/25 15: Total Bilirubin 0.4 mg/dL (0.15-1.2) 05/01/25 15: AST 25 U/L (0-32) 05/01/25 15: ALT 29 U/L (0-33) 05/01/25 15: Alkaline Phosphatase 61 U/L (35-105) 05/01/25 15:29 Troponin T Baseline < 6 ng/L (0-10) 05/01/25 15:29 Total Protein 7.2 g/dL (6.6-8.7) 05/01/25 15:29 Albumin 4.7 g/dL (3.5-5.2) 05/01/25 15:29 Globulin 2.5 g/dL (1.3-4.6) 05/01/25 15:29 Urine Color Dark yellow (Yellow) A 05/01/25 15:46 Urine Appearance Cloudy (CLEAR) A 05/01/25 15:46 Urine pH 5.5 (5-7) 05/01/25 15:46 Ur Specific [place] 1.017 (1.005-1.030) 05/01/25 15:46 Urine Protein Trace (Negative) A 05/01/25 15:46 Urine Glucose (UA) Negative (Normal) 05/01/25 15:46 Urine Ketones Trace (Negative) 05/01/25 15:46 Urine Blood Negative (Negative) 05/01/25 15:46 Urine Nitrate Negative (Negative) 05/01/25 15:46 Urine Bilirubin 1+ (Negative) H 05/01/25 15:46 Urine Urobilinogen 1.0 mg/dL (Negative) 05/01/25 15:46 Ur Leukocyte Esterase 3+ (Negative) A 05/01/25 15:46 Urine RBC 0-2 /hpf (0-2) 05/01/25 15:46 Urine WBC >100 /hpf (0-5) H 05/01/25 15:46 Ur Squamous Epith Cells 0-5 /hpf (0-5) 05/01/25 15:46 Amorphous Sediment Not Reportable 05/01/25 15:46 Urine Bacteria 4+ /hpf (NONE) H 05/01/25 15:46 Hyaline Casts 42.19 /lpf 05/01/25 15:46 All radiology interpretation(s) finalized by discharge Discharge Plan Discharge Patient Disposition: Home Clinical Impression: Frequent falls Fall Qualifiers: Encounter type: initial encounter Qualified Code(s): W19.XXXA - Unspecified fall, initial encounter UTI (urinary tract infection) Qualifiers: Urinary tract infection type: acute cystitis Hematuria presence: without hematuria Qualified Code(s): N30.00 - Acute cystitis without hematuria Condition: Stable Prescriptions: New cefdinir 300 mg capsule 300 mg PO BID 7 Days Qty: 14 0RF No Action (DME) Dexcom G7 [employer] Misc See Rx Instructions .Route Qty: 1 0RF Rx Instructions: As directed Aylin SureClick 140 mg/mL pen injector 140 mg SUBCUT DIRECTED Rx Instructions: 140 mg subcutaneously EVERY OTHER WEEK Xarelto 2.5 mg tablet 2.5 mg PO BID aspirin 81 mg tablet,delayed release (DR/EC) 81 mg PO DAILY cetirizine 10 mg tablet 10 mg PO DAILY PRN (Reason: Allergy Symptoms) magnesium oxide 400 mg magnesium tablet 400 mg PO DAILY ferrous sulfate [iron] 325 mg (65 mg iron) tablet 325 mg PO DAILY biotin 5,000 mcg tablet,chewable 5,000 mcg PO DAILY omega-3 fatty acids 1,000 mg capsule 1,000 mg PO DAILY mecobalamin (vitamin B12) 1,000 mcg tablet,chewable 1,000 mcg PO DAILY calcium carbonate-vitamin D3 600 mg-12.5 mcg (500 unit) capsule 2 cap PO DAILY methimazole 5 mg tablet 5 mg PO DAILY 30 Days Qty: 30 3RF losartan 25 mg tablet 25 mg PO DAILY metoprolol succinate 25 mg tablet extended release 24 hr 25 mg PO QPM duloxetine [Cymbalta] 30 mg capsule,delayed release(DR/EC) 30 mg PO DAILY Qty: 90 0RF Rx Instructions: along with 60mg cap for total of 90mg duloxetine 60 mg capsule,delayed release(DR/EC) 60 mg PO DAILY Qty: 90 0RF Rx Instructions: along with 30mg cap for total of 90mg fluticasone propionate 50 mcg/actuation spray,suspension See Rx Instructions .ROUTE .COMPLEX Qty: 16 0RF Dose Instruction: SHAKE LIQUID AND USE 1 SPRAY IN EACH NOSTRIL DAILY NEEDED FOR ALLERGY SYMPTOMS Rx Instructions: SHAKE LIQUID AND USE 1 SPRAY IN EACH NOSTRIL DAILY NEEDED FOR ALLERGY SYMPTOMS pantoprazole 40 mg tablet,delayed release (DR/EC) 40 mg PO DAILY Qty: 90 0RF (DME) 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 meter Misc See Rx Instructions .MEDSUPPLY Qty: 1 0RF Rx Instructions: Use as directed for checking blood sugar (DME) lancets [OneTouch UltraSoft 2 Lancet] 30 gauge misc See Rx Instructions .Route Qty: 100 11RF Rx Instructions: As directed (DME) cane See Rx Instructions .Route .MEDSUPPLY Qty: 1 0RF Rx Instructions: As directed (DME) OneTouch Ultra Test Strip See Rx Instructions .ROUTE .COMPLEX Qty: 100 0RF Dose Instruction: USE TO TEST BLOOD SUGAR DIRECTED. Rx Instructions: USE TO TEST BLOOD SUGAR DIRECTED. (DME) pen needle, diabetic 32 gauge x 5/32 needle See Rx Instructions .ROUTE .COMPLEX Qty: 100 3RF Dose Instruction: USE DIRECTED Rx Instructions: USE DIRECTED Mounjaro 10 mg/0.5 mL pen injector 10 mg SUBCUT Q7D 30 Days Qty: 2.5 3RF albuterol sulfate 90 mcg/actuation HFA aerosol inhaler 2 puff inhalation Q6H PRN (Reason: shortness of breath or wheezing) Qty: 8.5 2RF rosuvastatin 20 mg tablet 40 mg PO DAILY Qty: 90 3RF (DME) Dexcom G7 Sensor Device See Rx Instructions .ROUTE .COMPLEX Qty: 9 1RF Dose Instruction: CHANGE SENSOR EVERY 10 DAYS Rx Instructions: CHANGE SENSOR EVERY 10 DAYS insulin degludec [Tresiba FlexTouch U-100] 100 unit/mL (3 mL) insulin pen 21 unit SUBCUT DAILY carvedilol 6.25 mg tablet 6.25 mg PO BID ondansetron 8 mg tablet,disintegrating 8 mg PO TID PRN (Reason: Nausea And Vomiting) nitroglycerin [Nitrostat] 0.4 mg Tablet, Sublingual 0.4 mg SUBLINGUAL Q5M PRN (Reason: Chest Pain) Rx Instructions: do not exceed 3 doses per episode amitriptyline 50 mg tablet 50 mg PO BEDTIME buspirone 7.5 mg tablet 7.5 mg PO BID acarbose 25 mg tablet 25 mg PO TID Discharge Orders: Discharge ED (Routine); Ordered 05/01/25 Ordered By: Cassidy Hodge Referrals: Angelina Cook MD [Primary Care Provider, Family Practice] Patient Instructions: Urinary Tract Infection in Women (DC), Patient Portal & Cristhian Instructions Activity Restrictions/Additional Instructions: As we discussed, make sure you are drinking plenty of fluids. We discussed slow positional changes to decrease dizziness associated with this. Will place you on antibiotics for treatment of a UTI. Recommend you follow-up with primary care later this week. 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
--- NOTE | 2025-05-01 14:54 | ECG_ITS ---
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 Measurements Intervals [place] Rate: 103 P: 55 [place]: 179 QRS: 25 QRSD: 97 T: 181 QT: 324 QTc: 426 Interpretive Statements SINUS TACHYCARDIA MODERATE T-WAVE ABNORMALITY, CONSIDER INFERIOR ISCHEMIA [-0.1+ mV T-WAVE IN II/aVF] Compared to ECG 05/01/2025 12:56:21 Ventricular premature complex(es) no longer present T-wave abnormality still present Possible ischemia still present Electronically Signed On 05-01-2025 16:53:42 CDT by Tricia Davidson M.D. [email or web address]
--- NOTE | 2025-05-01 15:31 | XRR_ITS ---
PROCEDURE INFORMATION: Exam: XR Chest Exam date and time: 05/01/2025 3:37 PM Age: 64 years old Clinical indication: Injury or trauma; Fall; Blunt trauma (contusions or hematomas) TECHNIQUE: Imaging protocol: Radiologic exam of the chest. Views: 1 view. COMPARISON: CT cervical spin wo con* [id number] 05/01/2025 3:08 PM FINDINGS: Lungs: Lungs are clear. Pleural spaces: There is no pleural effusion or pneumothorax. Heart/Mediastinum: Cardiomediastinal contours are unremarkable. Bones/joints: Sternal wires are present. There is no displacement to suggest sternal dehiscence. There is apparent inferior displacement of the right distal clavicle at the AC joint. XR/XR chest 1V portable [id number] IMPRESSION: 1. No acute cardiopulmonary abnormality. 2. Right AC joint separation of indeterminate acuity.
[2025-05-01 15:44] LABS: Hematocrit 46.4 % (36-47); Hemoglobin 15.60 g/dL (11.27-16.99); Mean Corpuscular HGB Conc 33.6 g/dL (30-55); Mean Corpuscular Hemoglobin 31.0 pg (27-33); Mean Corpuscular Volume 92.1 fl (85-98); Nucleated Red Blood Cells % 0 %; Platelet Count 207 10^3/cmm (157-399); Red Blood Count 5.04 10^6/uL (3.85-5.65); White Blood Count 10.70 10^3/uL (3.29-11.43)
[2025-05-01 16:03] LABS: Alanine Aminotransferase 29 U/L (0-33); Albumin Level 4.7 g/dL (3.5-5.2); Alkaline Phosphatase 61 U/L (35-105); Anion Gap 23.8 (5-19); Aspartate Amino Transferase 25 U/L (0-32); Blood Urea Nitrogen 13 mg/dL (8-23); Calcium 10.1 mg/dL (8.5-10.5); Carbon Dioxide 19 mmol/L (22-29); Chloride 92 mmol/L (98-107); Creatinine Clr Calc Pharmacy 51.5740; Globulin 2.5 g/dL (1.3-4.6); Glucose 125 mg/dL (65-115); Osmolality Calculated 272 mOsm/kg (285-295); Potassium 4.8 mmol/L (3.5-5.1); Sodium 130 mmol/L (136-145); Total Protein 7.2 g/dL (6.6-8.7)
[2025-05-01 16:04] LABS: Troponin(5th) Baseline < 6 ng/L (0-10)
[2025-05-01 16:13] LABS: Glucose Urine UA Negative (Normal); Nitrate Urine Negative (Negative); Specific Gravity, Urine 1.017 (1.005-1.030)
[2025-05-01 16:19] LABS: Add Urine Microscopic? YES
[2025-05-01 16:21] LABS: UA Slide Review UA Slide Review Perf
[2025-05-01] MEDS: cefTRIAXone 1,000 MG in water for injection-sterile 2.1 ML 1 MG IM (17:10)
--- NOTE | 2025-05-01 17:22 | ECG_ITS ---
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
== END 2025-05-01 17:26 | disposition home or self-care (01) ==
PROVIDERS: Emergency Provider Physician Assistant; PCP Family Medicine
DX: N30.00 Acute cystitis without hematuria (principal); W19.XXXA Unspecified fall, initial encounter; R29.6 Repeated falls; Z79.4 Long term (current) use of insulin; I25.10 Atherosclerotic heart disease of native coronary artery without angina pectoris; E11.9 Type 2 diabetes mellitus without complications; I10 Essential (primary) hypertension; E78.5 Hyperlipidemia, unspecified
CPT/HCPCS: 36415; 70450; 71045; 72125; 80053; 81001; 84484; 85025; 85378; 87077; 87086; 87186; 93005; 96372; 99285; J0696

== ENCOUNTER 2025-05-25 10:45 | Outpatient (CLI) | payer MEDICARE, MEDICAID, SELFPAY ==
[2025-05-25 12:09] LABS: Estmated Average Glucose 137; Hemoglobin A1C 6.4 % (4.0-6.0)
[2025-05-25 12:20] LABS: Creatinine Urine, Random 168 mg/dL (28-217)
[2025-05-25 12:27] LABS: Microalbum Creatinine Ratio Ur 71 mg/dL (0-20)
[2025-05-25 12:32] LABS: Alanine Aminotransferase 18 U/L (0-33); Albumin Level 4.2 g/dL (3.5-5.2); Alkaline Phosphatase 52 U/L (35-105); Anion Gap 15.8 (5-19); Aspartate Amino Transferase 17 U/L (0-32); Blood Urea Nitrogen 6 mg/dL (8-23); Calcium 9.1 mg/dL (8.5-10.5); Carbon Dioxide 25 mmol/L (22-29); Chloride 102 mmol/L (98-107); Cholesterol 84 mg/dL (0-200); Free T4 Free Thyroxine 0.97 ng/dL (0.82-1.77); Globulin 2.3 g/dL (1.3-4.6); Glucose 152 mg/dL (65-115); HDL Cholesterol 55 mg/dL (60-100); Osmolality Calculated 289 mOsm/kg (285-295); Potassium 3.8 mmol/L (3.5-5.1); Sodium 139 mmol/L (136-145); Thyroid Stimulating Hormone 2.64 uIU/mL (0.27-4.20); Total Protein 6.5 g/dL (6.6-8.7); Triglycerides 95 mg/dL (0-150)
== END 2025-05-25 10:46 | disposition home or self-care (01) ==
PROVIDERS: PCP Family Medicine; Visit Provider Internal Medicine
DX: E11.9 Type 2 diabetes mellitus without complications (principal); E78.49 Other hyperlipidemia; M79.7 Fibromyalgia; I25.10 Atherosclerotic heart disease of native coronary artery without angina pectoris
CPT/HCPCS: 36415; 80053; 80061; 82044; 83036; 83516; 84439; 84443; 84480; 86376; 86800

== ENCOUNTER → 2025-05-29 15:14 | Outpatient (BNVA) | payer MEDICARE, MEDICAID, SELFPAY | PROVIDERS: PCP Family Medicine; Visit Provider Family Medicine | DX: Z01.89 Encounter for other specified special examinations (principal); W57.XXXA Bitten or stung by nonvenomous insect and other nonvenomous arthropods, initial encounter | CPT/HCPCS: 86003; 86008 ==

== ENCOUNTER 2025-06-08 14:17 | Outpatient (CLI) | payer MEDICARE, MEDICAID, SELFPAY | END 2025-06-08 14:18 | disposition home or self-care (01) | LOC: LAB 14:20 | PROVIDERS: PCP Family Medicine; Visit Provider Internal Medicine | DX: E11.9 Type 2 diabetes mellitus without complications (principal) | CPT/HCPCS: 36415 ==

== ENCOUNTER 2025-06-20 14:22 | Outpatient (CLI) | payer MEDICARE, MEDICAID, SELFPAY ==
--- NOTE | 2025-06-20 14:30 | MR_ITS ---
WS: [id number] MRI BRAIN WITHOUT CONTRAST HISTORY: headached confusion after head trauma COMPARISON: CT head 05/01/2025 TECHNIQUE: Diffusion imaging, multiplanar T1, T2 and FLAIR imaging obtained. No evidence for acute infarct or hemorrhage. Meade-white matter differentiation is normal. Mild volume loss and mild small vessel disease. No large infarcts. Ventricles and extra-axial spaces are normal. No inferior displacement of cerebellar tonsils. The sella turcica and pituitary gland are unremarkable. Dural venous sinuses and [place] demonstrate no abnormality on this unenhanced studies. Paranasal sinuses: Clear. Mastoid air cells: Normal. Calvarium and scalp: There is slight change in signal within the RIGHT frontal scalp at the area of the prior trauma. Suspect this is a scalp contusion measuring 2.0 cm in length. No calvarial lesion. MR/MR head wo con* [id number] IMPRESSION: 1. No intracranial hemorrhage or edema. 2. Mild volume loss and small vessel disease. 3. RIGHT frontal scalp signal change. This is in the area of the prior trauma and probably represents an area of scalp contusion or fat necrosis.
== END 2025-06-20 14:23 | disposition home or self-care (01) ==
LOC: RAD 14:24
PROVIDERS: PCP Family Medicine; Visit Provider Family Medicine
DX: S09.90XA Unspecified injury of head, initial encounter (principal); I67.89 Other cerebrovascular disease; R90.89 Other abnormal findings on diagnostic imaging of central nervous system; Y99.9 Unspecified external cause status
CPT/HCPCS: 70551

== ENCOUNTER 2025-07-10 13:22 | Outpatient (CLI) | payer MEDICARE, MEDICAID, SELFPAY ==
[2025-07-10 14:15] LABS: Hematocrit 41.6 % (36-47); Hemoglobin 13.90 g/dL (11.27-16.99); Mean Corpuscular HGB Conc 33.4 g/dL (30-55); Mean Corpuscular Hemoglobin 32.4 pg (27-33); Mean Corpuscular Volume 97.0 fl (85-98); Nucleated Red Blood Cells % 0 %; Platelet Count 184 10^3/cmm (157-399); Red Blood Count 4.29 10^6/uL (3.85-5.65); White Blood Count 4.35 10^3/uL (3.29-11.43)
[2025-07-10 14:43] LABS: Creatinine Urine, Random 61 mg/dL (28-217)
[2025-07-10 14:46] LABS: Microalbum Creatinine Ratio Ur 49 mg/dL (0-20)
[2025-07-10 14:55] LABS: NT Pro B Type Natriuretic Pept 593 pg/mL (0-125)
[2025-07-10 14:58] LABS: Alanine Aminotransferase 20 U/L (0-33); Albumin Level 4.1 g/dL (3.5-5.2); Alkaline Phosphatase 50 U/L (35-105); Anion Gap 17.2 (5-19); Aspartate Amino Transferase 28 U/L (0-32); Blood Urea Nitrogen 10 mg/dL (8-23); Calcium 9.4 mg/dL (8.5-10.5); Carbon Dioxide 23 mmol/L (22-29); Chloride 101 mmol/L (98-107); Cholesterol 102 mg/dL (0-200); Free T4 Free Thyroxine 1.02 ng/dL (0.82-1.77); Globulin 2.6 g/dL (1.3-4.6); Glucose 140 mg/dL (65-115); HDL Cholesterol 63 mg/dL (60-100); Osmolality Calculated 285 mOsm/kg (285-295); Potassium 4.2 mmol/L (3.5-5.1); Sodium 137 mmol/L (136-145); Thyroid Stimulating Hormone 1.29 uIU/mL (0.27-4.20); Total Protein 6.7 g/dL (6.6-8.7); Triglycerides 118 mg/dL (0-150)
[2025-07-10 15:00] LABS: Estmated Average Glucose 131; Hemoglobin A1C 6.2 % (4.0-6.0)
== END 2025-07-10 13:23 | disposition home or self-care (01) ==
LOC: LAB 13:24
PROVIDERS: Internal Medicine; PCP Family Medicine; Visit Provider Internal Medicine Interventional Cardiology
DX: E11.9 Type 2 diabetes mellitus without complications (principal); E05.90 Thyrotoxicosis, unspecified without thyrotoxic crisis or storm; I25.10 Atherosclerotic heart disease of native coronary artery without angina pectoris; M79.7 Fibromyalgia; E78.2 Mixed hyperlipidemia
CPT/HCPCS: 36415; 80053; 80061; 82044; 83036; 83880; 84439; 84443; 85025

== ENCOUNTER 2025-08-18 15:19 | Outpatient (CLI) | payer MEDICARE, MEDICAID, SELFPAY ==
--- NOTE | 2025-08-18 15:22 | XRR_ITS ---
PROCEDURE INFORMATION: Exam: XR Left Hip Exam date and time: 08/18/2025 3:51 PM Age: 64 years old Clinical indication: Pain and injury or trauma; Blunt trauma (contusions or hematomas); Groin and hip; Hip pain; Injury details: X2 months pain in left hip and groin area, recent falls, most pain during abduction; Additional info: Left hip pain TECHNIQUE: Imaging protocol: Radiologic exam of the left hip. Views: 2 or 3 views hip with pelvis when performed. COMPARISON: CR XR lumbar spine 2-3V* [id number] 05/04/2024 2:08 PM FINDINGS: Bones/joints: Degenerative changes of the visualized articulations. No acute fracture. Soft tissues: No acute findings. XR/XR hip LT 2-3V wo/w pel* [id number] IMPRESSION: No acute findings.
== END 2025-08-18 15:20 | disposition home or self-care (01) ==
LOC: RAD 15:19
PROVIDERS: PCP Family Medicine; Visit Provider Internal Medicine
DX: M25.552 Pain in left hip (principal)
CPT/HCPCS: 73502

== ENCOUNTER → 2025-09-19 11:54 | Outpatient (BNVA) | payer MEDICARE, MEDICAID, SELFPAY | PROVIDERS: PCP Family Medicine | DX: R39.89 Other symptoms and signs involving the genitourinary system (principal); R30.0 Dysuria | CPT/HCPCS: 81000; 87086 ==